=== PATIENT | male | born 1955 | race Caucasian/White ===

== ENCOUNTER → 2018-11-06 | Outpatient (CLI) | payer BC ==
--- NOTE | 2018-11-07 10:08 | ECHOF ---
Referral Reason:R01.1 Cardiac Murmur MEASUREMENTS -------- HEIGHT: 180.3 cm WEIGHT: 83.9 kg BP: 100/64 RVIDd: 3.4 cm (< 3.3) IVSd: 1.2 cm (0.6 - 1.1) LVIDd: 4.8 cm (3.9 - 5.3) LVPWd: 1.3 cm (0.6 - 1.1) IVSs: 1.6 cm LVIDs: 3.7 cm LVPWs: 1.8 cm LA Diam: 3.4 cm (2.7 - 3.8) LAESV Index (A-L): 22.83 ml/m Ao Diam: 3.7 cm (2.0 - 3.7) AV Cusp: 2.6 cm (1.5 - 2.6) MV EXCURSION: 26.030 mm (> 18.000) MV EF SLOPE: 144 mm/s (70 - 150) EPSS: 0.6 cm MV E Freddy: 0.61 m/s MV DecT: 224 ms MV A Freddy: 0.53 m/s MV E/A Ratio: 1.14 AV maxP.63 mmHg AV meanP.40 mmHg RAP: 5.00 mmHg RVSP: 21.14 mmHg FINDINGS -------- Sinus rhythm. This was a technically adequate study. The left ventricular size is normal. There is mild concentric left ventricular hypertrophy. Overa ll left ventricular systolic function is mildly impaired with, an EF between 45 - 50 %. The right ventricle is mildly enlarged. Normal LA size by volume 22+/-6 ml/m2. The right atrium is normal in size. There is mild aortic valve sclerosis. The mitral valve leaflets are mildly thickened. Mild mitral annular calcification present. There is trace mitral regurgitation. Trace tricuspid regurgitation present. There is no pulmonic regurgitation present. The aortic root size is normal. Normal inferior vena cava with normal inspiratory collapse consistent with estimated right atrial pre ssure of 5 mmHg. The inferior vena cava is mildly dilated. There is no pericardial effusion. CONCLUSIONS -------- 1. Sinus rhythm. 2. This was a technically adequate study. 3. The left ventricular size is normal. 4. There is mild concentric left ventricular hypertrophy. 5. Overall left ventricular systolic function is mildly impaired with, an EF between 45 - 50 %. 6. The right ventricle is mildly enlarged. 7. Normal LA size by volume 22+/-6 ml/m2. 8. The right atrium is normal in size. 9. There is mild aortic valve sclerosis. 10. The mitral valve leaflets are mildly thickened. 11. Mild mitral annular calcification present. 12. There is trace mitral regurgitation. 13. Trace tricuspid regurgitation present. 14. There is no pulmonic regurgitation present. 15. The aortic root size is normal. 16. Normal inferior vena cava with normal inspiratory collapse consistent with estimated right atrial pressure of 5 mmHg. 17. The inferior vena cava is mildly dilated. 18. There is no pericardial effusion. [employer]OL[employer] MANAGER: Nereyda Crane RDCS
== END | disposition home or self-care (01) ==
LOC: RADECHMAIN 15:46
PROVIDERS: ATTEND Pediatrics
DX: I08.3 Combined rheumatic disorders of mitral, aortic and tricuspid valves (principal)
CPT/HCPCS: 93306

== ENCOUNTER → 2019-03-14 | Outpatient (CLI) | payer BC ==
--- NOTE | 2019-03-14 12:43 | CONS ---
CONSULTATION DATE OF SERVICE: 03/14/2019 A 63-year-old gentleman who has been evaluated in the sleep center for possible obstructive sleep apnea-hypopnea syndrome. HISTORY OF PRESENT ILLNESS/SLEEP-WAKE EVALUATION: Patient usual sleep schedule from 9 p.m. to 4 to 5 am basically 7 days a week. No problem with falling asleep, although he has TV set in bedroom. He sleeps on the back position. He snores. He wakes up from sleep 3 times with 2 episodes of nocturia. In the morning, he wakes up tired, falling asleep during the day. Crocker Sleepiness Scale significantly increased to 12. He takes 1 nap during the day at noon time, usually does not feel refreshed after that. No vivid dreams during naps. He drinks 2 caffeinated beverages during the day. PAST MEDICAL HISTORY: Hypertension, hyperlipidemia, history of bronchitis. PAST SURGICAL HISTORY: Total right hip replacement 4 years ago, bilateral inguinal hernia repair. MEDICATIONS: Lisinopril and medication for cholesterol, patient does not remember the name. SOCIAL HISTORY: Positive for smoking about 1 pack a day for 45 years. Patient continued to smoke. Alcohol consumption occasional. FAMILY HISTORY: Positive for heart problems. REVIEW OF SYSTEMS: Awakenings from sleep, sleepiness during the day, cough. PHYSICAL EXAM: gentleman without distress. BP 125/76, HR 82, RR 18, height 5 foot 10 inches, weight 181.2 pounds, temperature 98.5, oxygen saturation at room air 95%, body mass index 25.9. OROPHARYNX: Extremely low position of soft palate. Mallampati 4. Restriction of nasal breathing. Wide neck 16-1/2 inches in circumference. LUNGS: Occasional wheezing. EXTREMITIES: 1+ ankle edema. IMPRESSION: 1. Snoring, multiple awakenings from sleep, extremely low soft palate, wide neck, sleepiness, obstructive sleep apnea-hypopnea syndrome. 2. Smoker for 45 pack years, wheezing, chronic obstructive pulmonary disease. 3. Hypertension. 4. Hyperlipidemia. 5. Status post total right hip replacement. 6. Status post inguinal hernia repair, bilaterally. PLAN: 1. Polysomnography for evaluation of patient's breathing during sleep. 2. CPAP/BiPAP titration if sleep study confirms obstructive sleep apnea-hypopnea syndrome. 3. Preferable position during sleep on the side. 4. No driving if patient feels any sleepiness. 5. I will see patient for follow up visit to explain results of testing and following plan. Thank you very much for referring this patient for consultation. Sincerely, Sid Kelley MD, PhD, FAASM Diplomat of [employer] Worker of [facility] [place] MMODL / TARIQ: [id number] /
== END ==
LOC: SLEEP 10:40
PROVIDERS: ATTEND Internal Medicine
DX: G47.33 Obstructive sleep apnea (adult) (pediatric) (principal); F17.210 Nicotine dependence, cigarettes, uncomplicated; J44.9 Chronic obstructive pulmonary disease, unspecified; I10 Essential (primary) hypertension; E78.5 Hyperlipidemia, unspecified; Z96.641 Presence of right artificial hip joint; Z98.890 Other specified postprocedural states; Z79.899 Other long term (current) drug therapy
CPT/HCPCS: 99211

== ENCOUNTER 2019-05-20 10:19 | Inpatient (IN) | payer BC ==
[2019-05-20] MEDS ORDERED: methylPREDNISolone SOD SUCCI 125 MG/2 ML VIAL IV STA (10:45)
[2019-05-20] MEDS ORDERED: SODIUM CHLORIDE 0.9% 1,000 ML IV STA ×2 (10:45→10:51)
[2019-05-20] MEDS ORDERED: IPRATROPIUM-ALBUTEROL 3 ML NEB INHALATION STA (10:45)
--- NOTE | 2019-05-20 10:47 | ED ---
SOB HPI - General Chief Complaint: Shortness of Breath Stated Complaint: SOB/chest pain Time Seen by Provider: 05/20/19 10:38 Source: patient, RN notes reviewed Mode of arrival: wheelchair Limitations: no limitations - History of Present Illness Initial Comments: This is a 63-year-old male who was a smoker who states he quit this morning who states been dealing with shortness of breath for the past month or so is acting better in spite of medication. He has exertional dyspnea denies any chest pain he states he coughs and can't get anything up. He currently is on albuterol as well as oral steroids and doxycycline. No other modifying factors at this time MD Complaint: shortness of breath, cough - Related Data Home Medications Medication Instructions Recorded Confirmed Aspirin 81 mg PO DAILY 05/20/19 05/20/19 Atorvastatin [Lipitor] 20 mg PO DAILY 05/20/19 05/20/19 Lisinopril-Hctz 20-12.5 mg 1 tab PO DAILY 05/20/19 05/20/19 [Zestoretic 20-12.5] Loratadine [Claritin] 10 mg PO DAILY 05/20/19 05/20/19 Multivitamins, Thera [Multivitamin 1 tab PO DAILY 05/20/19 05/20/19 (formulary)] Allergies Allergy/AdvReac Type Severity Reaction Status Date / Time No Known Allergies Allergy Verified 05/20/19 11:09 Review of Systems ROS Statement: Those systems with pertinent positive or pertinent negative responses have been documented in the HPI. ROS Other: All systems not noted in ROS Statement are negative. Past Medical History Past Medical History: Hypertension History of Any Multi-Drug Resistant Organisms: None Reported Past Surgical History: Joint Replacement Additional Past Surgical History / Comment(s): right hip replacement Past Psychological History: No Psychological Hx Reported Smoking Status: Former smoker Past Alcohol Use History: Occasional Past Drug Use History: None Reported General Exam - General Exam Comments Initial Comments: This is a well-developed well-nourished awake alert oriented 3 male Limitations: no limitations General appearance: alert, anxious, in distress Head exam: Present: atraumatic, normocephalic, normal inspection Eye exam: Present: normal appearance, PERRL, EOMI. Absent: scleral icterus, conjunctival injection, periorbital swelling ENT exam: Present: normal exam, mucous membranes moist Neck exam: Present: normal inspection, full ROM. Absent: tenderness, meningismus, lymphadenopathy Respiratory exam: Present: wheezes, rhonchi, accessory muscle use, decreased breath sounds. Absent: respiratory distress, rales, stridor Cardiovascular Exam: Present: normal rhythm, tachycardia, normal heart sounds. Absent: systolic murmur, diastolic murmur, rubs, gallop, clicks GI/Abdominal exam: Present: soft, normal bowel sounds. Absent: distended, tenderness, guarding, rebound, rigid Extremities exam: Present: normal inspection, full ROM, normal capillary refill. Absent: tenderness, pedal edema, joint swelling, calf tenderness Back exam: Present: normal inspection Neurological exam: Present: alert, oriented X3, CN II-XII intact Psychiatric exam: Present: normal affect, normal mood Skin exam: Present: warm, dry, intact, normal color. Absent: rash Course Vital Signs 05/20/19 05/20/19 05/20/19 10:30 11:00 11:05 Temperature 98.5 F Pulse Rate 42 L 174 H 174 H Respiratory 22 Rate Blood Pressure 71/55 114/102 O2 Sat by Pulse 92 L 97 Oximetry 05/20/19 05/20/19 05/20/19 11:10 11:14 11:20 Temperature Pulse Rate 174 H 172 H 172 H Respiratory Rate Blood Pressure 75/30 93/79 O2 Sat by Pulse 98 98 Oximetry 05/20/19 05/20/19 05/20/19 11:30 11:45 12:15 Temperature Pulse Rate 172 H 172 H 170 H Respiratory Rate Blood Pressure 93/79 106/91 111/83 O2 Sat by Pulse 98 96 97 Oximetry 05/20/19 05/20/19 12:52 13:17 Temperature Pulse Rate 121 H 109 H Respiratory 20 16 Rate Blood Pressure 109/99 108/84 O2 Sat by Pulse 95 96 Oximetry - Reevaluation(s) Reevaluation #1: 05/20/19 14:23 EKG showed what appear to be atrial flutter with a 21 AV conduction rate 174 QRS 82 QT since QTC 368/456. This is after adenosine was given. Reevaluation #2: 05/20/19 14:24 Rhythm strip during adenosine revealed evidence of atrial flutter. Reevaluation #3: 05/20/19 14:24 Repeat EKG at 1350 4 PM rate of 108 QRS 84 QT since QTC 322/431 atrial flutter left exodeviation low-voltage QRS Procedures - Smoking Cessation Time Spent Discussing Smoking Cessation w/Patient (Minutes): 3 Patient Acknowledges Need for Cessation: Yes Medical Decision Making - Medical Decision Making I did reevaluate patient on multiple occasions did discuss case with Dr. Whiting who did come the emergency department see the patient. Patient will be admitted cardiology consultation. - Lab Data Result diagrams: 05/20/19 10:52 05/20/19 10:52 Lab Results 05/20/19 05/20/19 05/20/19 Range/Units 10:52 10:52 10:52 WBC 22.4 H (3.8-10.6) k/uL RBC 5.20 (4.30-5.90) m/uL Hgb 16.5 (13.0-17.5) gm/dL Hct 51.3 (39.0-53.0) % MCV 98.5 (80.0-100.0) fL MCH 31.6 (25.0-35.0) pg MCHC 32.1 (31.0-37.0) g/dL RDW 13.0 (11.5-15.5) % Plt Count 323 (150-450) k/uL Neutrophils % 90 % Lymphocytes % 3 % Monocytes % 5 % Eosinophils % 2 % Basophils % 0 % Neutrophils # 20.2 H (1.3-7.7) k/uL Lymphocytes # 0.6 L (1.0-4.8) k/uL Monocytes # 1.0 (0-1.0) k/uL Eosinophils # 0.3 (0-0.7) k/uL Basophils # 0.1 (0-0.2) k/uL PT 11.5 (9.0-12.0) sec INR 1.1 (<1.2) APTT 26.2 (22.0-30.0) sec D-Dimer 4.06 H (<0.60) mg/L FEU Sodium 138 (137-145) mmol/L Potassium 5.1 (3.5-5.1) mmol/L Chloride 102 (98-107) mmol/L Carbon Dioxide 28 (22-30) mmol/L Anion Gap 8 mmol/L BUN 27 H (9-20) mg/dL Creatinine 0.99 (0.66-1.25) mg/dL Est GFR (CKD-EPI)AfAm >90 (>60 ml/min/1.73 sqM) Est GFR (CKD-EPI)NonAf 82 (>60 ml/min/1.73 sqM) Glucose 133 H (74-99) mg/dL Calcium 9.4 (8.4-10.2) mg/dL Magnesium 2.0 (1.6-2.3) mg/dL Total Bilirubin 1.3 (0.2-1.3) mg/dL AST 80 H (17-59) U/L ALT 131 H (21-72) U/L Alkaline Phosphatase 138 H (38-126) U/L Creatine Kinase 31 L (55-170) U/L Troponin I (0.000-0.034) ng/mL NT-Pro-B Natriuret Pep pg/mL Total Protein 6.4 (6.3-8.2) g/dL Albumin 3.5 (3.5-5.0) g/dL Urine Color Urine Appearance (Clear) Urine pH (5.0-8.0) Ur Specific [place] (1.001-1.035) Urine Protein (Negative) Urine Glucose (UA) (Negative) Urine Ketones (Negative) Urine Blood (Negative) Urine Nitrite (Negative) Urine Bilirubin (Negative) Urine Urobilinogen (<2.0) mg/dL Ur Leukocyte Esterase (Negative) 05/20/19 05/20/19 05/20/19 Range/Units 10:52 10:52 12:35 WBC (3.8-10.6) k/uL RBC (4.30-5.90) m/uL Hgb (13.0-17.5) gm/dL Hct (39.0-53.0) % MCV (80.0-100.0) fL MCH (25.0-35.0) pg MCHC (31.0-37.0) g/dL RDW (11.5-15.5) % Plt Count (150-450) k/uL Neutrophils % % Lymphocytes % % Monocytes % % Eosinophils % % Basophils % % Neutrophils # (1.3-7.7) k/uL Lymphocytes # (1.0-4.8) k/uL Monocytes # (0-1.0) k/uL Eosinophils # (0-0.7) k/uL Basophils # (0-0.2) k/uL PT (9.0-12.0) sec INR (<1.2) APTT (22.0-30.0) sec D-Dimer (<0.60) mg/L FEU Sodium (137-145) mmol/L Potassium (3.5-5.1) mmol/L Chloride (98-107) mmol/L Carbon Dioxide (22-30) mmol/L Anion Gap mmol/L BUN (9-20) mg/dL Creatinine (0.66-1.25) mg/dL Est GFR (CKD-EPI)AfAm (>60 ml/min/1.73 sqM) Est GFR (CKD-EPI)NonAf (>60 ml/min/1.73 sqM) Glucose (74-99) mg/dL Calcium (8.4-10.2) mg/dL Magnesium (1.6-2.3) mg/dL Total Bilirubin (0.2-1.3) mg/dL AST (17-59) U/L ALT (21-72) U/L Alkaline Phosphatase (38-126) U/L Creatine Kinase (55-170) U/L Troponin I <0.012 (0.000-0.034) ng/mL NT-Pro-B Natriuret Pep 3520 pg/mL Total Protein (6.3-8.2) g/dL Albumin (3.5-5.0) g/dL Urine Color Yellow Urine Appearance Clear (Clear) Urine pH 7.5 (5.0-8.0) Ur Specific [place] 1.047 H (1.001-1.035) Urine Protein Trace H (Negative) Urine Glucose (UA) Negative (Negative) Urine Ketones Trace H (Negative) Urine Blood Negative (Negative) Urine Nitrite Negative (Negative) Urine Bilirubin Negative (Negative) Urine Urobilinogen <2.0 (<2.0) mg/dL Ur Leukocyte Esterase Negative (Negative) - EKG Data -: EKG Interpreted by Me (EKG showed evidence of previous sinus tachycardia rate was 176 ME interval ) - Radiology Data Radiology results: report reviewed (Imaging was reviewed no evidence of pulmonary embolism. X-ray was nonspecific), image reviewed Critical Care Time Critical Care Time: Yes Critical Care Time: 54 minutes of critical care time which includes initial presentation with history physical labs x-rays multiple reevaluation the patient response to therapy DISCUSSION with patient family members admission orders discussed with the main physician documentation of the above Disposition Clinical Impression: Atrial flutter with rapid ventricular response, Hypotensive episode, Leukocytosis, COPD exacerbation, Smoking, Dyspnea Disposition: ADMITTED IP TO THIS HOSP Condition: Fair Referrals: Koby Holguin MD [Primary Care Provider] - 1-2 days
[2019-05-20] MEDS ORDERED: ADENOSINE 3 MG/ML 2 ML VIAL IVP STA ×2 (10:52→11:03)
[2019-05-20 11:03] LABS: Basophils # (A) 0.1 k/uL (0-0.2); Basophils % (A) 0 %; Eosinophils # (A) 0.3 k/uL (0-0.7); Eosinophils % (A) 2 %; HCT 51.3 % (39.0-53.0); HGB 16.5 gm/dL (13.0-17.5); Lymphocytes # (A) 0.6 k/uL (1.0-4.8); Lymphocytes % (A) 3 %; MCH 31.6 pg (25.0-35.0); MCHC 32.1 g/dL (31.0-37.0); MCV 98.5 fL (80.0-100.0); Mean Platelet Volume 7.2; Monocytes % (A) 5 %; Neutrophils # (A) 20.2 k/uL (1.3-7.7); Neutrophils % (A) 90 %; Platelet Count 323 k/uL (150-450); WBC 22.4 k/uL (3.8-10.6)
[2019-05-20 11:11] LABS: ALT 131 U/L (21-72); AST 80 U/L (17-59); African American GFR (CKD) >90 (>60 ml/min/1.73 sqM); Albumin 3.5 g/dL (3.5-5.0); Alkaline Phosphatase 138 U/L (38-126); Anion Gap 8 mmol/L; Blood Urea Nitrogen 27 mg/dL (9-20); Calcium 9.4 mg/dL (8.4-10.2); Carbon Dioxide 28 mmol/L (22-30); Chloride 102 mmol/L (98-107); Creatine Kinase 31 U/L (55-170); Glucose 133 mg/dL (74-99); Potassium 5.1 mmol/L (3.5-5.1); Sodium 138 mmol/L (137-145); Total Bilirubin 1.3 mg/dL (0.2-1.3); Total Protein 6.4 g/dL (6.3-8.2)
[2019-05-20] MEDS ORDERED: DILTIAZEM DRIP BOLUS FROM BAG 1 MG SOLN IV ONE ×2 (11:11→12:45)
[2019-05-20 11:23] LABS: INR 1.1 (<1.2); Partial Thromboplastin Time 26.2 sec (22.0-30.0); Prothrombin Time 11.5 sec (9.0-12.0)
[2019-05-20 11:27] LABS: D-Dimer 4.06 mg/L FEU (<0.60)
[2019-05-20] MEDS: DILTIAZEM 125 MG in SODIUM CHLORIDE 0.9% 100 ML IV SCH (11:32)
--- NOTE | 2019-05-20 11:53 | XR ---
EXAMINATION TYPE: XR chest 1V DATE OF EXAM: 05/20/2019 COMPARISON: Prior chest x-ray 09/23/2013 HISTORY: Difficulty breathing, tachycardia and chest pain TECHNIQUE: Single frontal view of the chest is obtained. FINDINGS: The patient is rotated. There are overlying cardiac leads. Heart size may be accentuated by rotation. Linear focus of increased attenuation is present in the left midlung. Aorta is dense. Ther e is no pleural effusion or pneumothorax seen. There are prominent lung volumes, there may be underly ing COPD. The osseous structures are intact. IMPRESSION: There may be some subsegmental atelectatic change or scarring. Accentuated heart size is described.
--- NOTE | 2019-05-20 12:33 | CT ---
EXAMINATION TYPE: CT angio chest DATE OF EXAM: 05/20/2019 COMPARISON: Radiograph same day HISTORY: 63-year-old male chest pain, tachycardia, difficulty breathing TECHNIQUE: Contiguous axial scanning of the chest performed with IV Contrast, patient injected with 1 00 mL of Isovue 370. Coronal/sagittal MIP reconstructions performed. CT DLP: 348.8 mGycm Automated exposure control for dose reduction was used. FINDINGS: Heart is normal size but with a moderate-sized pericardial effusion measuring 1.5 cm thick. Suggestio n of some pericardial thickening as well. No flattening of the interventricular septum or reflux of c ontrast into the hepatic veins. Coronary vessel calcifications are present. Ascending aorta mildly ectatic at 3.6 cm with mild atherosclerotic arch calcifications and convention al arch vessel branching anatomy. Nonenlarged and are likely mildly enlarged mediastinal lymph nodes measure up to 1.3 cm in the AP win ranjith, 1.0 cm lower right paratracheal region, and 9 mm left tracheobronchial angle. Satisfactory opacification of the pulmonary arterial system. No evidence for pulmonary embolus. Moderate centrilobular and paraseptal emphysema. Mild diffuse bronchial wall thickening. Strandy atel ectasis anterior right mid lung and within the lingula. Patchy atelectasis posterior right base. Ther e is a small left pleural effusion with adjacent left basilar atelectasis. Some endobronchial opacifi cation extends within the basilar left lower lobe and some mild dependent debris within the left main stem and left lower lobe bronchi. Visualized upper abdomen shows no gross abnormality. Bones: Mild degenerative disc disease throughout. IMPRESSION: 1. NO EVIDENCE FOR PULMONARY EMBOLUS. 2. MODERATE-SIZED PERICARDIAL EFFUSION MEASURING 1.5 CM THICK. CORRELATE FOR POSSIBLE PERICARDITIS. 3. SMALL LEFT PLEURAL EFFUSION WITH ADJACENT ATELECTASIS. THERE IS SOME LAYERING DEBRIS WITHIN THE LE FT MAINSTEM AND LEFT LOWER LOBE BRONCHUS AND SCATTERED ENDOBRONCHIAL OPACIFICATION AT THE LEFT BASE. CORRELATE FOR POSSIBLE ASPIRATION. NO PRINCESS PNEUMONITIS AT THIS TIME. 4. COPD WITH MODERATE EMPHYSEMA.
[2019-05-20 12:50] LABS: Appearance,Urine Clear (Clear); Bilirubin,Urine Negative (Negative); Blood,Urine Negative (Negative); Color,Urine Yellow; Glucose,Urine (UA) Negative (Negative); Ketones,Urine Trace (Negative); Leukocyte Esterase,Urine Negative (Negative); Nitrite,Urine Negative (Negative); PH, Urine 7.5 (5.0-8.0); Protein,Urine Trace (Negative); Urobilinogen,Urine <2.0 mg/dL (<2.0)
[2019-05-20 12:54] LABS: Specific Gravity,Urine 1.047 (1.001-1.035)
[2019-05-20] MEDS ORDERED: KETOROLAC 30 MG/ML 1 ML VIAL IVP PRN (14:22)
[2019-05-20] MEDS ORDERED: NALOXONE 0.4 MG/ML 1 ML VIAL IV PRN (14:28)
--- NOTE | 2019-05-20 14:28 | P.HPIM ---
History of Present Illness Patient is a pleasant 71-year-old gentleman with known history of smoking smokes about a pack per day came in with complaints of chest pain has been going on for about 4 weeks constant moderate amount of chest pain nonradiating and not associated with the shortness of breath and last night which he is unable to sleep because of shortness of breath does not appear to be associated chest pain. His chest pain is nonexertional does have pleuritic competent denied any flulike symptoms recently. Patient does have cough unable to bring up anything. Patient does have wheezing on exam CAT scan of the chest was done which showed moderate amount of pericardial effusion appears to have some pleuropericarditis doesn't have any pulmonary embolism, I reviewed the CAT scan I do not believe patient has any pneumonia although it was read as possibly of aspiration. Patient denied any fever chills patient had nausea vomiting. In ER patient is found to have a SVT with heart rate of 1 04/01/2020 patient was given 1 dose of Pitocin after which patient was started on Cardizem patient had a previous echocardiogram here which showed ejection fraction of 45-50% patient does follow up with the doctor Mark as an outpatient unsure why. Patient does have leukocytosis. Review of Systems REVIEW OF SYSTEMS: CONSTITUTIONAL: No fever, no malaise, no fatigue. HEENT: No recent visual problems or hearing problems. Denied any sore throat. CARDIOVASCULAR: No orthopnea, PND, no palpitations, no syncope. PULMONARY: no hemoptysis. GASTROINTESTINAL: No diarrhea, no nausea, no vomiting, no abdominal pain. NEUROLOGICAL: No headaches, no weakness, no numbness. HEMATOLOGICAL: Denies any bleeding or petechiae. GENITOURINARY: Denies any burning micturition, frequency, or urgency. MUSCULOSKELETAL/RHEUMATOLOGICAL: Denies any joint pain, swelling, or any muscle pain. ENDOCRINE: Denies any polyuria or polydipsia. The rest of the 14-point review of systems is negative. Past Medical History Past Medical History: Hypertension History of Any Multi-Drug Resistant Organisms: None Reported Past Surgical History: Joint Replacement Additional Past Surgical History / Comment(s): right hip replacement Past Psychological History: No Psychological Hx Reported Smoking Status: Former smoker Past Alcohol Use History: Occasional Past Drug Use History: None Reported Medications and Allergies Home Medications Medication Instructions Recorded Confirmed Type Aspirin 81 mg PO DAILY 05/20/19 05/20/19 History Atorvastatin [Lipitor] 20 mg PO DAILY 05/20/19 05/20/19 History Lisinopril-Hctz 20-12.5 mg 1 tab PO DAILY 05/20/19 05/20/19 History [Zestoretic 20-12.5] Loratadine [Claritin] 10 mg PO DAILY 05/20/19 05/20/19 History Multivitamins, Thera [Multivitamin 1 tab PO DAILY 05/20/19 05/20/19 History (formulary)] Allergies Allergy/AdvReac Type Severity Reaction Status Date / Time No Known Allergies Allergy Verified 05/20/19 11:09 Physical Exam Vitals: Vital Signs Temp Pulse Resp BP Pulse Ox 05/20/19 13:17 109 H 16 108/84 96 05/20/19 12:52 121 H 20 109/99 95 05/20/19 12:15 170 H 111/83 97 05/20/19 11:45 172 H 106/91 96 05/20/19 11:30 172 H 93/79 98 05/20/19 11:20 172 H 93/79 98 05/20/19 11:14 172 H 05/20/19 11:10 174 H 75/30 98 05/20/19 11:05 174 H 05/20/19 11:00 174 H 114/102 97 05/20/19 10:30 98.5 F 42 L 22 71/55 92 L Intake and Output 05/19/19 05/20/19 05/20/19 22:59 06:59 14:59 Intake Total 7.916 Balance 7.916 Intake: Intake, IV Titration 7.916 Amount Diltiazem 125 mg In 7.916 Sodium Chloride 0.9% 100 ml @ 5 MG/HR 5 mls/hr IV .Q24H [facility] Rx#:[id number] Other: Weight 83.461 kg PHYSICAL EXAMINATION: GENERAL: The patient is alert and oriented x3, not in any acute distress. Well developed, well nourished. HEENT: Pupils are round and equally reacting to light. EOMI. No scleral icterus. No conjunctival pallor. Normocephalic, atraumatic. No pharyngeal erythema. No thyromegaly. CARDIOVASCULAR: S1 and S2 present. No murmurs, rubs, or gallops. Tachycardic irregular rhythm PULMONARY: Decreased air entry with some expiratory wheezing on exam ABDOMEN: Soft, nontender, nondistended, normoactive bowel sounds. No palpable organomegaly. MUSCULOSKELETAL: No joint swelling or deformity. EXTREMITIES: No cyanosis, clubbing, or pedal edema. NEUROLOGICAL: Gross neurological examination did not reveal any focal deficits. SKIN: No rashes. Results CBC & Chem 7: 05/20/19 10:52 05/20/19 10:52 Labs: Abnormal Lab Results - Last 24 Hours (Table) 05/20/19 05/20/19 05/20/19 Range/Units 10:52 10:52 10:52 WBC 22.4 H (3.8-10.6) k/uL Neutrophils # 20.2 H (1.3-7.7) k/uL Lymphocytes # 0.6 L (1.0-4.8) k/uL D-Dimer 4.06 H (<0.60) mg/L FEU BUN 27 H (9-20) mg/dL Glucose 133 H (74-99) mg/dL AST 80 H (17-59) U/L ALT 131 H (21-72) U/L Alkaline Phosphatase 138 H (38-126) U/L Creatine Kinase 31 L (55-170) U/L Ur Specific [place] (1.001-1.035) Urine Protein (Negative) Urine Ketones (Negative) 05/20/19 Range/Units 12:35 WBC (3.8-10.6) k/uL Neutrophils # (1.3-7.7) k/uL Lymphocytes # (1.0-4.8) k/uL D-Dimer (<0.60) mg/L FEU BUN (9-20) mg/dL Glucose (74-99) mg/dL AST (17-59) U/L ALT (21-72) U/L Alkaline Phosphatase (38-126) U/L Creatine Kinase (55-170) U/L Ur Specific [place] 1.047 H (1.001-1.035) Urine Protein Trace H (Negative) Urine Ketones Trace H (Negative) Assessment and Plan Plan: -COPD with acute exacerbation: Patient was started on oral steroids and continue with inhalational treatments. Patient was never diagnosed with COPD nicotine cessation counseling was provided. -Chest pain: Appears to be pleuropericarditis probably viral etiology patient will be started on Toradol patient was also started on prednisone for COPD which will be continued patient will be ruled out acute coronary syndromes cardiology will be consulted -Moderate pericardial effusion: Echocardiogram will be obtained to clearly assess the ejection fraction as well as a effusion. -SVT on admission present rhythm is not clear patient appears to have a regular rhythm secondary to frequent PVCs. Patient may have atrial flutter as well. Patient is presently not started on anticoagulation yet. Cardiology will evaluate the patient. Patient was started on beta adolfo presently on Cardizem drip which will be slowly tapered down -Congestive heart failure mildly depressed ejection fraction chronic systolic dysfunction ejection fraction of 45-50% -Mild nonspecific elevation of liver enzymes we'll repeat liver enzymes if they continue to go up and we will do further workup with ultrasound of the abdomen. -Leukocytosis reactive in nature -Hypertension because of the Cardizem I have concerns about hypotension because of which I'll not start him on any of his antidepressants medications -Patient will need GI prophylaxis with Pepcid
[2019-05-20] MEDS ORDERED: HEPARIN SODIUM,PORCINE 5,000 UNIT/ML 1 ML VIAL IV ONE (17:03)
[2019-05-20] MEDS ORDERED: HEPARIN SODIUM,PORCINE 5,000 UNIT/ML 1 ML VIAL IV PRN (17:03)
--- NOTE | 2019-05-20 17:05 | ECHOF ---
Referral Reason:pericardial effusion MEASUREMENTS -------- HEIGHT: 172.7 cm WEIGHT: 83.5 kg BP: RVIDd: 3.2 cm (< 3.3) IVSd: 1.2 cm (0.6 - 1.1) LVIDd: 4.6 cm (3.9 - 5.3) LVPWd: 1.1 cm (0.6 - 1.1) IVSs: 1.5 cm LVIDs: 3.9 cm LVPWs: 1.7 cm LA Diam: 3.1 cm (2.7 - 3.8) Ao Diam: 3.3 cm (2.0 - 3.7) AV Cusp: 1.1 cm (1.5 - 2.6) LA Diam: 3.2 cm (2.7 - 3.8) MV EXCURSION: 25.380 mm (> 18.000) MV EF SLOPE: 146 mm/s (70 - 150) EPSS: 0.4 cm MV E Freddy: 0.57 m/s MV DecT: 120 ms MV A Freddy: 0.00 m/s MV E/A Ratio: 593.66 RAP: 5.00 mmHg RVSP: 17.13 mmHg FINDINGS -------- Atrial fibrillation. This was a technically adequate study. The left ventricular size is normal. There is borderline concentric left ventricular hypertrophy. Overall left ventricular systolic function is mildly impaired with, an EF between 45 - 50 %. The right ventricle is normal in size. The left atrial size is normal. The right atrial size is normal. There is mild aortic valve sclerosis. There is no evidence of aortic regurgitation. Mild mitral annular calcification present. Mild mitral regurgitation is present. Mild tricuspid regurgitation present. There is no evidence of pulmonary hypertension. The right v entricular systolic pressure, as measured by Doppler, is 17.13mmHg. There is no pulmonic regurgitation present. The aortic root size is normal. There is a small, generalized pericardial effusion present. CONCLUSIONS -------- 1. Atrial fibrillation. 2. This was a technically adequate study. 3. The left ventricular size is normal. 4. Overall left ventricular systolic function is mildly impaired with, an EF between 45 - 50 %. 5. The right ventricle is normal in size. 6. The left atrial size is normal. 7. The right atrial size is normal. 8. There is mild aortic valve sclerosis. 9. Mild mitral annular calcification present. 10. Mild mitral regurgitation is present. 11. Mild tricuspid regurgitation present. 12. There is no evidence of pulmonary hypertension. 13. The right ventricular systolic pressure, as measured by Doppler, is 17.13mmHg. 14. There is no pulmonic regurgitation present. 15. The aortic root size is normal. 16. There is a small, generalized pericardial effusion present. CONTACT LENS LATHE OPERATOR: Kenyatta Ignacio RDCS
[2019-05-20] MEDS ORDERED: HEPARIN SOD,PORK IN 0.45% NACL 25,000 UNIT in 0.45% NACL 1 250ML.BAG IV SCH (17:15)
[2019-05-20] MEDS: IPRATROPIUM-ALBUTEROL 3 ML NEB INHALATION PRN (19:50)
[2019-05-20] MEDS: METOPROLOL TARTRATE 50 MG TAB PO SCH (21:09)
[2019-05-20] MEDS: FAMOTIDINE 20 MG TAB PO SCH (21:09)
[2019-05-21] MEDS: IPRATROPIUM-ALBUTEROL 3 ML NEB INHALATION PRN ×3 (02:30→18:56)
[2019-05-21 02:56] LABS: African American GFR (CKD) >90 (>60 ml/min/1.73 sqM); Anion Gap 7 mmol/L; Blood Urea Nitrogen 20 mg/dL (9-20); Calcium 8.5 mg/dL (8.4-10.2); Carbon Dioxide 26 mmol/L (22-30); Chloride 104 mmol/L (98-107); Glucose 146 mg/dL (74-99); Magnesium 2.1 mg/dL (1.6-2.3); Potassium 4.2 mmol/L (3.5-5.1); Sodium 137 mmol/L (137-145)
[2019-05-21] MEDS: DILTIAZEM 125 MG in SODIUM CHLORIDE 0.9% 100 ML IV SCH (05:33)
[2019-05-21 06:43] LABS: Basophils % (A) 0 %; Eosinophils # (A) 0.1 k/uL (0-0.7); Eosinophils % (A) 0 %; HGB 14.1 gm/dL (13.0-17.5); Lymphocytes # (A) 0.5 k/uL (1.0-4.8); Lymphocytes % (A) 2 %; MCH 31.9 pg (25.0-35.0); MCV 99.5 fL (80.0-100.0); Mean Platelet Volume 7.7; Monocytes # (A) 0.9 k/uL (0-1.0); Monocytes % (A) 5 %; Neutrophils # (A) 18.4 k/uL (1.3-7.7); Neutrophils % (A) 92 %; Platelet Count 246 k/uL (150-450); RBC 4.42 m/uL (4.30-5.90); RDW 14.2 % (11.5-15.5)
[2019-05-21 06:52] LABS: ALT 81 U/L (21-72); AST 29 U/L (17-59); African American GFR (CKD) >90 (>60 ml/min/1.73 sqM); Albumin 2.9 g/dL (3.5-5.0); Alkaline Phosphatase 117 U/L (38-126); Anion Gap 6 mmol/L; Blood Urea Nitrogen 18 mg/dL (9-20); Calcium 8.6 mg/dL (8.4-10.2); Carbon Dioxide 27 mmol/L (22-30); Chloride 104 mmol/L (98-107); Glucose 152 mg/dL (74-99); Potassium 4.3 mmol/L (3.5-5.1); Sodium 137 mmol/L (137-145); Total Bilirubin 0.4 mg/dL (0.2-1.3); Total Protein 5.5 g/dL (6.3-8.2)
[2019-05-21] MEDS ORDERED: FUROSEMIDE 10 MG/ML 2 ML VIAL IV ONE (08:29)
--- NOTE | 2019-05-21 09:29 | CONS ---
CONSULTATION Mr. Hutchinson is a 63-year-old male with a known history of hypertension, hyperlipidemia, chronic tobacco use, who presented with symptoms of progressive dyspnea and cough and wheezing. He was noted to be in atrial flutter with a rapid ventricular response. He has no prior history of arrhythmia, has been followed by Dr. Gilbert on a regular basis. He denies any exertional chest discomfort. He has exertional dyspnea. He has no peripheral edema. No PND. No orthopnea. He has some palpitation and some chest discomfort with deep breathing and coughing. He has been started on IV Cardizem and IV heparin with controlling of his ventricular response. He has no history of myocardial infarction or documented congestive heart failure. He had an echocardiogram performed yesterday that showed ejection fraction 45% to 50%, which is somewhat similar to what he was noted to have in the past with mild mitral and tricuspid regurgitation. His coronary risk factors are remarkable for smoking, which he stopped only 2 days ago, history of hypertension, hyperlipidemia. MEDICATIONS: His medications at home included Zestoretic 20/12.5 mg daily, Lipitor 20 mg daily and aspirin once a day. REVIEW OF SYSTEMS: RESPIRATORY SYSTEM: He has history of progressive dyspnea and a cough. History of obstructive lung disease. GI SYSTEM: No recent GI bleed. No peptic ulcer disease. SYSTEM: No dysuria or hematuria. NERVOUS SYSTEM: No history of stroke or seizure. PHYSICAL EXAMINATION: This is a 63-year-old male, alert, oriented, in no apparent distress. Blood pressure 104/72 with the heart rate in the 60s. HEAD: Normocephalic. EYES: Sclerae anicteric. NECK: Good carotid upstroke. No bruit. LUNGS: With decreased air exchange with diffuse wheezes bilaterally. HEART: Irregular, irregular, S1, S2. No S3. No rub. No significant murmur. ABDOMEN: Soft, nontender. Positive bowel sounds. No organomegaly. EXTREMITIES: No edema. Intact distal pulses. LAB DATA: Lab data revealed troponin less than 0.012. NT proBNP of 3520. BUN and creatinine of 18 and 0.5. Potassium 4.3. D-dimer 4.06. Hemoglobin of 14.1, white blood cell of 20,000. Chest CT revealed no evidence of pulmonary embolism with evidence of pericardial effusion with evidence of chronic obstructive pulmonary disease and emphysema. Chest x-ray raised the question of cardiomegaly. EKG revealed atrial flutter with rapid ventricular response with episode of 2:1 conduction. Subsequently, the rate is under better control with variable blocks. IMPRESSION: 1. Upper respiratory infection with probable tracheobronchitis. 2. Atrial flutter, appears to be recent. 3. History of cardiomyopathy noted in the past. 4. History of chronic tobacco use with chronic obstructive lung disease. 5. Hypertension. 6. Hyperlipidemia. 7. Abdominal aortic aneurysm noted in the past. RECOMMENDATION: From the cardiac standpoint I will stop the IV heparin and Cardizem and will switch him to oral anticoagulation as well as oral Cardizem. Continue with his medical regimen. He had mild elevation of the NT proBNP that could be related to the tachycardia. I will give him one dose of diuretics. His EARLE inhibitor is on hold until his blood pressure is stabilized. He has been treated for the infectious process. After his lung status stabilized, then the decision will be made regarding either cardioversion or ablation. He has underwent a myocardial perfusion imaging in December of this year that revealed no evidence of inducible ischemia. Thank you for this consult. We will follow with you. MMODL / IJN: [id number] /
[2019-05-21] MEDS: predniSONE 20 MG TAB PO SCH (09:43)
[2019-05-21] MEDS: DILTIAZEM ORAL 30 MG TAB PO SCH ×3 (09:43→22:21)
[2019-05-21] MEDS: APIXABAN 5 MG TAB PO SCH ×2 (09:43→22:21)
[2019-05-21] MEDS: ASPIRIN 81 MG PO SCH (09:43)
[2019-05-21] MEDS: METOPROLOL TARTRATE 50 MG TAB PO SCH ×2 (09:43→22:21)
[2019-05-21] MEDS: ATORVASTATIN 20 MG TAB PO SCH (09:43)
[2019-05-21] MEDS: FAMOTIDINE 20 MG TAB PO SCH ×2 (09:44→22:21)
[2019-05-21 10:35] LABS: T4, Free (Free Thyroxine) 2.24 ng/dL (0.78-2.19)
--- NOTE | 2019-05-21 12:39 | P.PN ---
Subjective 71-year-old gentleman came in because of atrial flutter appears to be new onset patient was started on anti-correlation by cardiology and patient is on beta adolfo and Cardizem is being added. Patient is still wheezing quite a bit of neurology validate the patient is started on antibiotics and was switched to IV steroids from oral steroids. Patient may have some pleural pericarditis K echo cardiac exam showed only mild effusion around the heart. Constitutional: Denied any fatigue denied any fever. Cardio vascular: denied any chest pain, palpitations Gastrointestinal denied any nausea vomiting Pulmonary: Denied any shortness of breath cough Neurologic denied any new focal deficits All inpatient medications were reviewed and appropriate changes in these medications as dictated in the interval history and assessment and plan. Objective - Vital Signs Vital signs: Vital Signs Temp 98.2 F 05/21/19 08:00 Pulse 79 05/21/19 12:06 Resp 19 05/21/19 08:00 BP 98/63 05/21/19 08:00 Pulse Ox 96 05/21/19 11:58 Intake & Output 05/20/19 05/21/19 05/21/19 18:59 06:59 18:59 Intake Total 247.916 781.347 293.893 Balance 247.916 781.347 293.893 Weight 83.461 kg 84.5 kg Intake: Intake, IV Titration 7.916 181.347 93.893 Amount Diltiazem 125 mg In 7.916 117.084 Sodium Chloride 0.9% 100 ml @ 5 MG/HR 5 mls/hr IV .Q24H [facility] Rx#:[id number] Heparin Sod,Pork in 0.45% 64.263 93.893 NaCl 25,000 unit In 0.45 % NaCl 1 250ml.bag @ 12 UNITS/KG/HR 10.015 mls/hr IV .Q24H [facility] Rx#: [id number] Oral 240 600 200 Other: Voiding Method Toilet Toilet Urinal Urinal # Voids 1 2 - Exam PHYSICAL EXAMINATION: GENERAL: The patient is alert and oriented x3, not in any acute distress. Well developed, well nourished. HEENT: Pupils are round and equally reacting to light. EOMI. No scleral icterus. No conjunctival pallor. Normocephalic, atraumatic. No pharyngeal erythema. No thyromegaly. CARDIOVASCULAR: S1 and S2 present. No murmurs, rubs, or gallops. Tachycardic irregular rhythm PULMONARY: Decreased air entry with significant expiratory wheezing on exam ABDOMEN: Soft, nontender, nondistended, normoactive bowel sounds. No palpable organomegaly. MUSCULOSKELETAL: No joint swelling or deformity. EXTREMITIES: No cyanosis, clubbing, or pedal edema. NEUROLOGICAL: Gross neurological examination did not reveal any focal deficits. SKIN: No rashes. - Labs CBC & Chem 7: 05/21/19 05:52 05/21/19 05:52 Labs: Abnormal Lab Results - Last 24 Hours (Table) 05/20/19 05/20/19 05/21/19 Range/Units 12:35 22:30 02:32 WBC (3.8-10.6) k/uL Neutrophils # (1.3-7.7) k/uL Lymphocytes # (1.0-4.8) k/uL APTT 35.2 H (22.0-30.0) sec Creatinine 0.54 L (0.66-1.25) mg/dL Glucose 146 H (74-99) mg/dL ALT (21-72) U/L Total Protein (6.3-8.2) g/dL Albumin (3.5-5.0) g/dL TSH (0.465-4.680) mIU/L Free T4 (0.78-2.19) ng/dL Ur Specific [place] 1.047 H (1.001-1.035) Urine Protein Trace H (Negative) Urine Ketones Trace H (Negative) 05/21/19 05/21/19 05/21/19 Range/Units 05:52 05:52 05:52 WBC 20.0 H (3.8-10.6) k/uL Neutrophils # 18.4 H (1.3-7.7) k/uL Lymphocytes # 0.5 L (1.0-4.8) k/uL APTT 35.0 H (22.0-30.0) sec Creatinine 0.50 L (0.66-1.25) mg/dL Glucose 152 H (74-99) mg/dL ALT 81 H (21-72) U/L Total Protein 5.5 L (6.3-8.2) g/dL Albumin 2.9 L (3.5-5.0) g/dL TSH (0.465-4.680) mIU/L Free T4 (0.78-2.19) ng/dL Ur Specific [place] (1.001-1.035) Urine Protein (Negative) Urine Ketones (Negative) 05/21/19 Range/Units 05:52 WBC (3.8-10.6) k/uL Neutrophils # (1.3-7.7) k/uL Lymphocytes # (1.0-4.8) k/uL APTT (22.0-30.0) sec Creatinine (0.66-1.25) mg/dL Glucose (74-99) mg/dL ALT (21-72) U/L Total Protein (6.3-8.2) g/dL Albumin (3.5-5.0) g/dL TSH 0.105 L (0.465-4.680) mIU/L Free T4 2.24 H (0.78-2.19) ng/dL Ur Specific [place] (1.001-1.035) Urine Protein (Negative) Urine Ketones (Negative) Assessment and Plan Plan: -COPD with acute exacerbation: patient was switched to IV steroids will be started on Levaquin by pulmonology -Chest pain: Appears to be pleuropericarditis probably viral etiology continue with Toradol and prednisone with GI prophylaxis -Moderate pericardial effusion: Echocardiogram showed only mild effusion -atrial flutter with rapid ventricular rate: Patient was on beta adolfo was started on Cardizem and anticoagulation -Congestive heart failure mildly depressed ejection fraction chronic systolic dysfunction ejection fraction of 45-50%, not in acute exacerbation -Mild nonspecific elevation of liver enzymes which normalizes now no further testing is necessary -Leukocytosis reactive in natureAnn secondary to systemic steroids -Hypertension because of the Cardizem I have concerns about hypotension because of which I'll not start him on any of his antidepressants medications -Patient will need GI prophylaxis with Pepcid
[2019-05-22] MEDS: IPRATROPIUM-ALBUTEROL 3 ML NEB INHALATION PRN (05:51)
[2019-05-22 06:32] LABS: Basophils % (A) 0 %; Eosinophils % (A) 0 %; HCT 43.9 % (39.0-53.0); HGB 14.1 gm/dL (13.0-17.5); Lymphocytes # (A) 0.9 k/uL (1.0-4.8); Lymphocytes % (A) 5 %; MCH 32.7 pg (25.0-35.0); MCHC 32.2 g/dL (31.0-37.0); MCV 101.3 fL (80.0-100.0); Macrocytosis Slight; Mean Platelet Volume 7.3; Monocytes # (A) 0.9 k/uL (0-1.0); Monocytes % (A) 5 %; Neutrophils # (A) 15.8 k/uL (1.3-7.7); Neutrophils % (A) 89 %; Platelet Count 263 k/uL (150-450); RBC 4.33 m/uL (4.30-5.90); WBC 17.8 k/uL (3.8-10.6)
[2019-05-22 06:42] LABS: African American GFR (CKD) >90 (>60 ml/min/1.73 sqM); Anion Gap 3 mmol/L; Blood Urea Nitrogen 22 mg/dL (9-20); Calcium 8.9 mg/dL (8.4-10.2); Carbon Dioxide 34 mmol/L (22-30); Chloride 101 mmol/L (98-107); Glucose 102 mg/dL (74-99); Potassium 4.6 mmol/L (3.5-5.1); Sodium 138 mmol/L (137-145)
[2019-05-22] MEDS: METOPROLOL TARTRATE 50 MG TAB PO SCH ×2 (08:20→20:53)
[2019-05-22] MEDS: APIXABAN 5 MG TAB PO SCH ×2 (08:20→20:53)
[2019-05-22] MEDS: predniSONE 20 MG TAB PO SCH (08:20)
[2019-05-22] MEDS: ATORVASTATIN 20 MG TAB PO SCH (08:20)
[2019-05-22] MEDS: DILTIAZEM ORAL 30 MG TAB PO SCH ×3 (08:20→22:37)
[2019-05-22] MEDS: ASPIRIN 81 MG PO SCH (08:20)
[2019-05-22] MEDS: FAMOTIDINE 20 MG TAB PO SCH ×2 (08:20→20:53)
[2019-05-22] MEDS ORDERED: DOXYCYCLINE 100 MG CAP PO SCH (10:15)
[2019-05-22] MEDS: IPRATROPIUM-ALBUTEROL 3 ML NEB INHALATION SCH ×3 (11:02→19:56)
[2019-05-22] MEDS: METHIMAZOLE 5 MG TAB PO SCH ×3 (11:05→22:37)
[2019-05-22] MEDS: guaiFENesin 600 MG TABLET.ER PO SCH ×2 (11:05→20:53)
--- NOTE | 2019-05-22 13:28 | P.PN ---
Subjective 71-year-old gentleman came in because of atrial flutter appears to be new onset patient was started on anti-correlation by cardiology and patient is on beta adolfo and Cardizem is being added. Patient is still wheezing quite a bit of neurology validate the patient is started on antibiotics and was switched to IV steroids from oral steroids. Patient may have some pleural pericarditis K echo cardiac exam showed only mild effusion around the heart. 05/22/2019 patient heart rate is well controlled at this time yesterday dictated as patient is on antibiotics and IV steroids although patient is only on oral steroids not done in IV steroids and patient is not on any antibiotics or do not believe and medics at necessary. Patient the still has wheezing but significant improved compared to yesterday unable to bring up any phlegm patient was started on Mucinex. I'm expecting his wheezing to improve by tomorrow possibility of discharge tomorrow if that happens. Constitutional: Denied any fatigue denied any fever. Cardio vascular: denied any chest pain, palpitations Gastrointestinal denied any nausea vomiting Pulmonary: As mentioned in HPI Neurologic denied any new focal deficits All inpatient medications were reviewed and appropriate changes in these medications as dictated in the interval history and assessment and plan. Objective - Vital Signs Vital signs: Vital Signs Temp 98.2 F 05/22/19 08:25 Pulse 67 05/22/19 11:46 Resp 18 05/22/19 11:46 BP 110/73 05/22/19 11:46 Pulse Ox 96 05/22/19 11:46 Intake & Output 05/21/19 05/22/19 05/22/19 18:59 06:59 18:59 Intake Total 293.893 100 480 Balance 293.893 100 480 Weight 83.7 kg Intake: Intake, IV Titration 93.893 Amount Heparin Sod,Pork in 0.45% 93.893 NaCl 25,000 unit In 0.45 % NaCl 1 250ml.bag @ 12 UNITS/KG/HR 10.015 mls/hr IV .Q24H [facility] Rx#: [id number] Oral 200 100 480 Other: Voiding Method Toilet Toilet Urinal Urinal # Voids 3 1 - Exam PHYSICAL EXAMINATION: GENERAL: The patient is alert and oriented x3, not in any acute distress. Well developed, well nourished. HEENT: Pupils are round and equally reacting to light. EOMI. No scleral icterus. No conjunctival pallor. Normocephalic, atraumatic. No pharyngeal erythema. No thyromegaly. CARDIOVASCULAR: S1 and S2 present. No murmurs, rubs, or gallops. Rate controlled now PULMONARY: Does have wheezing on exam significant improved compared to yesterday ABDOMEN: Soft, nontender, nondistended, normoactive bowel sounds. No palpable organomegaly. MUSCULOSKELETAL: No joint swelling or deformity. EXTREMITIES: No cyanosis, clubbing, or pedal edema. NEUROLOGICAL: Gross neurological examination did not reveal any focal deficits. SKIN: No rashes. - Labs CBC & Chem 7: 05/22/19 05:40 05/22/19 05:40 Labs: Abnormal Lab Results - Last 24 Hours (Table) 05/22/19 05/22/19 Range/Units 05:40 05:40 WBC 17.8 H (3.8-10.6) k/uL MCV 101.3 H (80.0-100.0) fL Neutrophils # 15.8 H (1.3-7.7) k/uL Lymphocytes # 0.9 L (1.0-4.8) k/uL Carbon Dioxide 34 H (22-30) mmol/L BUN 22 H (9-20) mg/dL Creatinine 0.56 L (0.66-1.25) mg/dL Glucose 102 H (74-99) mg/dL Assessment and Plan Plan: -COPD with acute exacerbation: Patient will be continued on oral steroids will not require any antibiotics -Chest pain: Appears to be pleuropericarditis probably viral etiology continue with Toradol and prednisone with GI prophylaxis -Moderate pericardial effusion: Echocardiogram showed only mild effusion -atrial flutter with rapid ventricular rate: Patient was on beta adolfo was started on Cardizem and anticoagulation, patient is presently rate controlled -Congestive heart failure mildly depressed ejection fraction chronic systolic dysfunction ejection fraction of 45-50%, not in acute exacerbation -Mild nonspecific elevation of liver enzymes which normalizes now no further testing is necessary -Leukocytosis reactive in natureAnn secondary to systemic steroids -Hypertension because of the Cardizem I have concerns about hypotension because of which I'll not start him on any of his antidepressants medications -Patient will need GI prophylaxis with Pepcid
[2019-05-22] MEDS ORDERED: LACTULOSE 20 GM/30 ML CUP PO ONE (14:24)
--- NOTE | 2019-05-22 14:39 | P.PN ---
Subjective Progress Note Date: 05/22/19 This is a 63-year-old gentleman with known history of hypertension, hyperlipidemia, chronic nicotine dependence, who presented to the hospital with symptoms of progressive dyspnea with associated cough and wheezing. He was noted to be in atrial flutter with rapid ventricular response. Patient has no prior documented history of arrhythmia, he's been followed by in the office. Patient was seen and examined this morning, his breathing is significantly improved yet he continues to have a significant amount of wheezing. Patient had an echocardiogram with Doppler study performed which revealed an ejection fraction of 45-50%, which was somewhat similar to his prior echo. Blood pressure today 110/70 with a heart rate in the 60s, 96% on room air. Blood cell count 17.8, hemoglobin 14.1, platelet count 263. Sodium 138, potassium 4.6, BUN 22 and creatinine 0.5 . Remaining in normal sinus rhythm today. Objective - Vital Signs Vital signs: Vital Signs Temp 98.2 F 05/22/19 08:25 Pulse 67 05/22/19 11:46 Resp 18 05/22/19 11:46 BP 110/73 05/22/19 11:46 Pulse Ox 96 05/22/19 11:46 Intake & Output 05/21/19 05/22/19 05/22/19 18:59 06:59 18:59 Intake Total 293.893 100 480 Balance 293.893 100 480 Weight 83.7 kg Intake: Intake, IV Titration 93.893 Amount Heparin Sod,Pork in 0.45% 93.893 NaCl 25,000 unit In 0.45 % NaCl 1 250ml.bag @ 12 UNITS/KG/HR 10.015 mls/hr IV .Q24H [facility] Rx#: [id number] Oral 200 100 480 Other: Voiding Method Toilet Toilet Urinal Urinal # Voids 3 1 - Exam PHYSICAL EXAMINATION: GENERAL: 63-year-old gentleman in no acute distress at the time of my examination HEENT: Head is atraumatic, normocephalic. Pupils equal, round. Sclera anicteric. Conjunctiva are clear. Mucous membranes of the mouth are moist. Neck is supple. There is no elevated jugular venous pressure. No carotid bruit is heard. HEART EXAMINATION: Heart S1, S2 normal. No murmur or gallop heard. CHEST EXAMINATION: On's reveal scattered wheezing throughout, air exchange today ABDOMEN: Soft, nontender. Bowel sounds are heard. No organomegaly noted. EXTREMITIES: 2+ peripheral pulses with no evidence of peripheral edema and no calf tenderness noted. NEUROLOGIC patient is awake, alert and oriented 3 . . - Labs CBC & Chem 7: 05/22/19 05:40 05/22/19 05:40 Labs: Abnormal Lab Results - Last 24 Hours (Table) 05/22/19 05/22/19 Range/Units 05:40 05:40 WBC 17.8 H (3.8-10.6) k/uL MCV 101.3 H (80.0-100.0) fL Neutrophils # 15.8 H (1.3-7.7) k/uL Lymphocytes # 0.9 L (1.0-4.8) k/uL Carbon Dioxide 34 H (22-30) mmol/L BUN 22 H (9-20) mg/dL Creatinine 0.56 L (0.66-1.25) mg/dL Glucose 102 H (74-99) mg/dL Assessment and Plan Plan: Assessment and plan #1 respiratory infection with probable tracheobronchitis #2 typical atrial flutter, paroxysmal, currently in normal sinus rhythm #3 chronic nicotine dependence with COPD #4 hypertension #5 hyperlipidemia #6 history of abdominal aortic aneurysm Plan From cardiology's perspective, we'll recommend to continue the patient on his current medications. Continue to monitor for another 24 hours. DNP note has been reviewed, I agree with a documented findings and plan of care. Patient was seen and examined.
[2019-05-22] MEDS: DOCUSATE 100 MG CAP PO SCH (20:53)
[2019-05-23 06:40] LABS: Basophils % (A) 0 %; Eosinophils % (A) 0 %; HCT 45.1 % (39.0-53.0); HGB 14.5 gm/dL (13.0-17.5); Lymphocytes % (A) 8 %; MCH 32.6 pg (25.0-35.0); MCHC 32.1 g/dL (31.0-37.0); MCV 101.5 fL (80.0-100.0); Mean Platelet Volume 8.7; Monocytes # (A) 0.7 k/uL (0-1.0); Monocytes % (A) 6 %; Neutrophils # (A) 9.5 k/uL (1.3-7.7); Neutrophils % (A) 84 %; Platelet Count 213 k/uL (150-450); RBC 4.45 m/uL (4.30-5.90); RDW 12.8 % (11.5-15.5); WBC 11.3 k/uL (3.8-10.6)
[2019-05-23 06:47] LABS: African American GFR (CKD) >90 (>60 ml/min/1.73 sqM); Anion Gap 3 mmol/L; Blood Urea Nitrogen 15 mg/dL (9-20); Calcium 8.7 mg/dL (8.4-10.2); Carbon Dioxide 38 mmol/L (22-30); Chloride 98 mmol/L (98-107); Glucose 96 mg/dL (74-99); Potassium 4.1 mmol/L (3.5-5.1); Sodium 139 mmol/L (137-145)
[2019-05-23 08:16] VITALS: BP 135/81; RESP 18; TEMP 97.3
[2019-05-23] MEDS: DILTIAZEM ORAL 30 MG TAB PO SCH (08:18)
[2019-05-23] MEDS: guaiFENesin 600 MG TABLET.ER PO SCH (08:19)
[2019-05-23] MEDS: APIXABAN 5 MG TAB PO SCH (08:19)
[2019-05-23] MEDS: DOCUSATE 100 MG CAP PO SCH (08:19)
[2019-05-23] MEDS: METHIMAZOLE 5 MG TAB PO SCH (08:19)
[2019-05-23] MEDS: predniSONE 20 MG TAB PO SCH (08:19)
[2019-05-23] MEDS: ATORVASTATIN 20 MG TAB PO SCH (08:19)
[2019-05-23] MEDS: METOPROLOL TARTRATE 50 MG TAB PO SCH (08:19)
[2019-05-23] MEDS: FAMOTIDINE 20 MG TAB PO SCH (08:19)
[2019-05-23] MEDS: IPRATROPIUM-ALBUTEROL 3 ML NEB INHALATION SCH ×2 (08:23→11:56)
[2019-05-23 08:41] VITALS: PULSE 72
--- NOTE | 2019-05-23 11:55 | PN ---
PROGRESS NOTE Mr. Hutchinson is a 63-year-old male who presented with exacerbation of COPD and was found to be in atrial flutter. He has converted to sinus mechanism and continues to be in sinus mechanism. He is feeling well this morning. His breathing has been stable. He denies any dizziness or palpitation. He denies any nausea or cough. He continues to be at this time on Eliquis 5 mg twice a day, Lipitor 20 mg daily, diltiazem 30 mg 3 times a day, metoprolol tartrate 50 mg twice a day. PHYSICAL EXAMINATION: Blood pressure 135/80 with the heart rate in the 60. LUNGS: With improved air exchange with scattered few wheezes. HEART: Regular rate and rhythm. S1, S2. No S3. No rub. ABDOMEN: Soft, nontender. EXTREMITIES: No edema. LAB DATA: Lab data revealed BUN and creatinine of 15 and 0.56, potassium 4.1. IMPRESSION: 1. Exacerbation of chronic obstructive pulmonary disease, improving. 2. Paroxysmal atrial flutter, anticoagulated, back in sinus mechanism. 3. History of chronic tobacco use. 4. Hypertension. 5. Hyperlipidemia. 6. History of abdominal aortic aneurysm. RECOMMENDATION: From the cardiac standpoint, he should be able to be discharged home today and followed as an outpatient with Dr. Gilbert. MMODL / EMANUELN: [id number] /
--- NOTE | 2019-05-23 12:47 | P.DS ---
Providers Date of admission: 05/20/19 14:28 Attending physician: Berkley Whiting Consults: 05/20/19 14:29 Consult Physician Routine Consulting Provider: Jenny Woods Consult Reason/Comments: rapid atrial flutter, leukocytosis Do you want consulting provider notified?: Yes Primary care physician: [facility] Course: 71-year-old gentleman came in because of atrial flutter appears to be new onset patient was started on anti-correlation by cardiology and patient is on beta adolfo and Cardizem is being added. Patient is still wheezing quite a bit of neurology validate the patient is started on antibiotics and was switched to IV steroids from oral steroids. Patient may have some pleural pericarditis K echo cardiac exam showed only mild effusion around the heart. 05/22/2019 patient heart rate is well controlled at this time yesterday dictated as patient is on antibiotics and IV steroids although patient is only on oral steroids not done in IV steroids and patient is not on any antibiotics or do not believe and medics at necessary. Patient the still has wheezing but significant improved compared to yesterday unable to bring up any phlegm patient was started on Mucinex. I'm expecting his wheezing to improve by tomorrow possibility of discharge tomorrow if that happens. 05/23/2019 Patient respiratory status improved still wheezing on exam wheezing although improved significantly patient is not requiring any home oxygen patient will be discharged today heart rate is well controlled at this time patient will follow up with the pulmonology as an outpatient. PHYSICAL EXAMINATION: GENERAL: The patient is alert and oriented x3, not in any acute distress. Well developed, well nourished. HEENT: Pupils are round and equally reacting to light. EOMI. No scleral icterus. No conjunctival pallor. Normocephalic, atraumatic. No pharyngeal erythema. No thyromegaly. CARDIOVASCULAR: S1 and S2 present. No murmurs, rubs, or gallops. PULMONARY: Minimal expiratory wheezing significant on the right side. ABDOMEN: Soft, nontender, nondistended, normoactive bowel sounds. No palpable organomegaly. MUSCULOSKELETAL: No joint swelling or deformity. EXTREMITIES: No cyanosis, clubbing, or pedal edema. NEUROLOGICAL: Gross neurological examination did not reveal any focal deficits. SKIN: No rashes. Assessment and Plan Plan: -COPD with acute exacerbation: -Chest pain: Appears to be pleuropericarditis -Moderate pericardial effusion: Echocardiogram showed only mild effusion -atrial flutter with rapid ventricular rate: As in the rate controlled patient is being discharged on metoprolol and Cardizem -Congestive heart failure mildly depressed ejection fraction chronic systolic dysfunction ejection fraction of 45-50%, not in acute exacerbation Possible hyperthyroidism patient was started on methimazole, TSH need to be repeated in about a month -Mild nonspecific elevation of liver enzymes normalized and no further testing is necessary -Leukocytosis reactive in nature. -Hypertension -Patient will need GI prophylaxis with Pepcid Patient Condition at Discharge: Stable Plan - Discharge Summary Discharge Rx Participant: No New Discharge Prescriptions: New Diltiazem Oral [Cardizem*] 30 mg PO TID #90 tab Apixaban [Eliquis] 5 mg PO BID #60 tab Metoprolol Tartrate [Lopressor] 50 mg PO BID #60 tab guaiFENesin [Mucinex] 600 mg PO Q12HR #20 tablet.er Famotidine [Pepcid] 20 mg PO BID #60 tab Methimazole [Tapazole] 5 mg PO TID #90 tab Polyethylene Glycol 3350 [Miralax] 17 gm PO DAILY PRN #15 packet PRN Reason: Constipation predniSONE 10 mg PO DAILY #30 tab Tiotropium [place] [Spiriva] 1 cap INHALATION DAILY #1 device Budesonide-Formot 160-4.5 Mcg [Symbicort 160-4.5 Mcg Inhaler] 2 puff INHALATION BID #1 inhaler Albuterol Inhaler [Ventolin Hfa Inhaler] 1 - 2 puff INHALATION Q6HR PRN #1 i nhaler PRN Reason: Shortness Of Breath Or Wheezing Continue Loratadine [Claritin] 10 mg PO DAILY Atorvastatin [Lipitor] 20 mg PO DAILY Multivitamins, Thera [Multivitamin (formulary)] 1 tab PO DAILY Discontinued Lisinopril-Hctz 20-12.5 mg [Zestoretic 20-12.5] 1 tab PO DAILY Aspirin 81 mg PO DAILY Discharge Medication List Atorvastatin [Lipitor] 20 mg PO DAILY 05/20/19 [History] Loratadine [Claritin] 10 mg PO DAILY 05/20/19 [History] Multivitamins, Thera [Multivitamin (formulary)] 1 tab PO DAILY 05/20/19 [History] Albuterol Inhaler [Ventolin Hfa Inhaler] 1 - 2 puff INHALATION Q6HR PRN #1 inhaler 05/23/19 [Rx] Apixaban [Eliquis] 5 mg PO BID #60 tab 05/23/19 [Rx] Budesonide-Formot 160-4.5 Mcg [Symbicort 160-4.5 Mcg Inhaler] 2 puff INHALATION BID #1 inhaler 05/23/19 [Rx] Diltiazem Oral [Cardizem*] 30 mg PO TID #90 tab 05/23/19 [Rx] Famotidine [Pepcid] 20 mg PO BID #60 tab 05/23/19 [Rx] Methimazole [Tapazole] 5 mg PO TID #90 tab 05/23/19 [Rx] Metoprolol Tartrate [Lopressor] 50 mg PO BID #60 tab 05/23/19 [Rx] Polyethylene Glycol 3350 [Miralax] 17 gm PO DAILY PRN #15 packet 05/23/19 [Rx] Tiotropium [place] [Spiriva] 1 cap INHALATION DAILY #1 device 05/23/19 [Rx] guaiFENesin [Mucinex] 600 mg PO Q12HR #20 tablet.er 05/23/19 [Rx] predniSONE 10 mg PO DAILY #30 tab 05/23/19 [Rx] Follow up Appointment(s)/Referral(s): Weston Gilbert MD [STAFF PHYSICIAN] - 05/31/19 10:45 am (Monday) Shaniqua Hansen NPC [Nurse Practitioner] - 06/12/19 2:30 pm (Monday) Koby Holguin MD [Primary Care Provider] - 05/30/19 9:30 am ( with Sanjuana -previously scheduled appointment) Megan Gomez MD [STAFF PHYSICIAN] - 1 Week Patient Instructions/Handouts: Atrial Flutter (DC), COPD (Chronic Obstructive Pulmonary Disease) (DC), Safe Use of Anticoagulants (DC) Activity/Diet/Wound Care/Special Instructions: pt qualifies for $10/mo Kellie-he was provided coupon Discharge Disposition: HOME SELF-CARE
== END 2019-05-23 12:41 | disposition home or self-care (01) | DRG 191 ==
LOC: EC 10:19 → 3SCARD 14:28
PROVIDERS: ADMIT Internal Medicine; ATTEND Internal Medicine
DX: J44.1 Chronic obstructive pulmonary disease with (acute) exacerbation (principal); I31.3 Pericardial effusion (noninflammatory); I42.9 Cardiomyopathy, unspecified; I48.3 Typical atrial flutter; I47.1 Supraventricular tachycardia; I50.22 Chronic systolic (congestive) heart failure; I30.1 Infective pericarditis; I95.9 Hypotension, unspecified; I11.0 Hypertensive heart disease with heart failure; I08.1 Rheumatic disorders of both mitral and tricuspid valves; E78.5 Hyperlipidemia, unspecified; F17.200 Nicotine dependence, unspecified, uncomplicated; I49.3 Ventricular premature depolarization; D72.829 Elevated white blood cell count, unspecified; R74.8 Abnormal levels of other serum enzymes; I71.4 Abdominal aortic aneurysm, without rupture; E05.90 Thyrotoxicosis, unspecified without thyrotoxic crisis or storm; Z79.82 Long term (current) use of aspirin; Z79.899 Other long term (current) drug therapy; Z96.641 Presence of right artificial hip joint; Z71.6 Tobacco abuse counseling
CPT/HCPCS: 36415; 71045; 71275; 80048; 80053; 81003; 82550; 83735; 83880; 84439; 84443; 84484; 85025; 85379; 85610; 85730; 93005; 93306; 94640; 94760; 96361; 96365; 96366; 96375; 96376; 99291

== ENCOUNTER → 2019-05-31 | Outpatient (CLI) | payer BC | END | disposition home or self-care (01) | LOC: LABWHC1 11:20 | PROVIDERS: ATTEND Nurse Practitioner Adult Health | DX: I48.0 Paroxysmal atrial fibrillation (principal) | CPT/HCPCS: 36415; 84443; 84481 ==

== ENCOUNTER 2019-06-19 12:41 | Observation (INO) | payer BC ==
[2019-06-19] MEDS ORDERED: NITROGLYCERIN OINT 1 INCH/GM PACKET TOPICAL STA (13:11)
[2019-06-19] MEDS ORDERED: ASPIRIN 81 MG PO STA (13:11)
[2019-06-19] MEDS ORDERED: NITROGLYCERIN SL TABS 0.4 MG TAB SUBLINGUAL STA ×2 (13:11)
[2019-06-19 13:29] LABS: Partial Thromboplastin Time 28.5 sec (22.0-30.0); Prothrombin Time 10.5 sec (9.0-12.0)
--- NOTE | 2019-06-19 13:30 | ED ---
General Adult HPI - General Chief complaint: Chest Pain Stated complaint: chest pain, SAMIA Time Seen by Provider: 06/19/19 12:45 Source: patient, RN notes reviewed Mode of arrival: ambulatory Limitations: no limitations - History of Present Illness Initial comments: This is a 63-year-old male who presents emergency Department with a past history of atrial fibrillation. Patient comes in today because he started having chest pain over the last 2 days it comes and goes. Patient states it seems to be worse when he is in bed lying on his left side but that is not always the case. Patient has not noticed that exertion makes it worse. Patient states it is associated with significant shortness of breath per patient states currently he does have the pain and shortness of breath. Patient denies any diaphoretic episodes. Patient denies nausea. Patient denies any radiation of the pain. Patient denies any recent fever chills or cough. Patient denies abdominal pain - Related Data Home Medications Medication Instructions Recorded Confirmed Atorvastatin [Lipitor] 20 mg PO DAILY 05/20/19 06/19/19 Loratadine [Claritin] 10 mg PO DAILY 05/20/19 06/19/19 Albuterol Inhaler [Ventolin Hfa 1 - 2 puff INHALATION RT-Q6H PRN 06/19/19 06/19/19 Inhaler] Budesonide-Formot 160-4.5 Mcg 2 puff INHALATION RT-BID 06/19/19 06/19/19 [Symbicort 160-4.5 Mcg Inhaler] Famotidine [Pepcid] 20 mg PO DAILY 06/19/19 06/19/19 Methimazole [Tapazole] 5 mg PO DAILY 06/19/19 06/19/19 Metoprolol Succinate (ER) [Toprol 150 mg PO DAILY 06/19/19 06/19/19 Xl] buPROPion HCL [Wellbutrin SR] 150 mg PO BID 06/19/19 06/19/19 guaiFENesin [Mucinex] 600 mg PO Q12HR PRN 06/19/19 06/19/19 Previous Rx's Medication Instructions Recorded Apixaban [Eliquis] 5 mg PO BID #60 tab 05/23/19 Polyethylene Glycol 3350 [Miralax] 17 gm PO DAILY PRN #15 packet 05/23/19 Tiotropium [place] [Spiriva] 1 cap INHALATION DAILY #1 device 05/23/19 Allergies Allergy/AdvReac Type Severity Reaction Status Date / Time No Known Allergies Allergy Verified 06/19/19 12:42 Review of Systems ROS Statement: Those systems with pertinent positive or pertinent negative responses have been documented in the HPI. ROS Other: All systems not noted in ROS Statement are negative. Past Medical History Past Medical History: COPD, Hyperlipidemia, Hypertension, Vascular Disorder History of Any Multi-Drug Resistant Organisms: None Reported Past Surgical History: Hernia Repair, Joint Replacement Additional Past Surgical History / Comment(s): right hip replacement Past Anesthesia/Blood Transfusion Reactions: No Reported Reaction Past Psychological History: No Psychological Hx Reported Smoking Status: Current some day smoker Past Alcohol Use History: Rare Past Drug Use History: None Reported - Past Family History Mother Additional Family Medical History / Comment(s): colon polps Father Family Medical History: AFIB, Hypertension Additional Family Medical History / Comment(s): AAA General Exam - General Exam Comments Initial Comments: GENERAL: Patient is well-developed and well-nourished. Patient is nontoxic and well- hydrated and is in mild distress. ENT: Neck is soft and supple. No significant lymphadenopathy is noted. Oropharynx is clear. Moist mucous membranes. Neck has full range of motion without eliciting any pain. EYES: The sclera were anicteric and conjunctiva were pink and moist. Extraocular movements were intact and pupils were equal round and reactive to light. Eyelids were unremarkable. PULMONARY: Unlabored respirations. Good breath sounds bilaterally. No audible rales rhonchi or wheezing was noted. CARDIOVASCULAR: There is a regular rate and rhythm without any murmurs gallops or rubs. ABDOMEN: Soft and nontender with normal bowel sounds. No palpable organomegaly was noted. There is no palpable pulsatile mass. SKIN: Skin is clear with no lesions or rashes and otherwise unremarkable. NEUROLOGIC: Patient is alert and oriented x3. Cranial nerves II through XII are grossly intact. Motor and sensory are also intact. Normal speech, volume and content. Symmetrical smile. MUSCULOSKELETAL: Normal extremities with adequate strength and full range of motion. No lower extremity swelling or edema. No calf tenderness. LYMPHATICS: No significant lymphadenopathy is noted PSYCHIATRIC: Normal psychiatric evaluation. Limitations: no limitations Course Vital Signs 06/19/19 06/19/19 06/19/19 12:42 13:05 13:30 Temperature 99.6 F Pulse Rate 75 77 80 Respiratory 18 28 H 29 H Rate Blood Pressure 114/75 114/77 O2 Sat by Pulse 96 97 97 Oximetry 06/19/19 06/19/19 06/19/19 13:35 13:43 14:00 Temperature Pulse Rate 75 77 73 Respiratory 18 18 13 Rate Blood Pressure 115/81 116/83 133/83 O2 Sat by Pulse 97 96 97 Oximetry 06/19/19 06/19/19 14:30 14:41 Temperature Pulse Rate 72 74 Respiratory 24 18 Rate Blood Pressure 119/76 123/85 O2 Sat by Pulse 97 96 Oximetry Medical Decision Making - Medical Decision Making EKG shows normal sinus rhythm at 70 bpm MT interval 132 QRS is 88 QT interval 372 QTC is 424. Patient's EKG shows no ST segment elevation or depression or T wave abnormalities are noted. The chest x-ray shows no acute abnormality. Patient received 3 nitroglycerin in the hospital and that took away his pain completely. Patient's been pain-free since. I spoke with Dr. Walsh about keeping the patient he agreed the patient was going to be admitted the patient is admitted for unstable angina I consult cardiology and repeated troponins. - Lab Data Result diagrams: 06/19/19 13:00 06/19/19 13:00 Lab Results 06/19/19 06/19/19 06/19/19 Range/Units 13:00 13:00 13:00 WBC 10.5 (3.8-10.6) k/uL RBC 4.72 (4.30-5.90) m/uL Hgb 15.2 (13.0-17.5) gm/dL Hct 45.0 (39.0-53.0) % MCV 95.3 D (80.0-100.0) fL MCH 32.1 (25.0-35.0) pg MCHC 33.7 (31.0-37.0) g/dL RDW 14.8 (11.5-15.5) % Plt Count 153 (150-450) k/uL Neutrophils % 79 % Lymphocytes % 10 % Monocytes % 7 % Eosinophils % 1 % Basophils % 1 % Neutrophils # 8.2 H (1.3-7.7) k/uL Lymphocytes # 1.1 (1.0-4.8) k/uL Monocytes # 0.8 (0-1.0) k/uL Eosinophils # 0.1 (0-0.7) k/uL Basophils # 0.1 (0-0.2) k/uL PT (9.0-12.0) sec INR (<1.2) APTT (22.0-30.0) sec Sodium 139 (137-145) mmol/L Potassium 4.5 (3.5-5.1) mmol/L Chloride 102 (98-107) mmol/L Carbon Dioxide 29 (22-30) mmol/L Anion Gap 8 mmol/L BUN 16 (9-20) mg/dL Creatinine 0.80 (0.66-1.25) mg/dL Est GFR (CKD-EPI)AfAm >90 (>60 ml/min/1.73 sqM) Est GFR (CKD-EPI)NonAf >90 (>60 ml/min/1.73 sqM) Glucose 149 H (74-99) mg/dL Calcium 9.1 (8.4-10.2) mg/dL Magnesium 2.0 (1.6-2.3) mg/dL Total Bilirubin 0.8 (0.2-1.3) mg/dL AST 31 (17-59) U/L ALT 66 (21-72) U/L Alkaline Phosphatase 111 (38-126) U/L Troponin I (0.000-0.034) ng/mL NT-Pro-B Natriuret Pep 1260 pg/mL Total Protein 6.8 (6.3-8.2) g/dL Albumin 4.0 (3.5-5.0) g/dL 06/19/19 06/19/19 Range/Units 13:00 13:00 WBC (3.8-10.6) k/uL RBC (4.30-5.90) m/uL Hgb (13.0-17.5) gm/dL Hct (39.0-53.0) % MCV (80.0-100.0) fL MCH (25.0-35.0) pg MCHC (31.0-37.0) g/dL RDW (11.5-15.5) % Plt Count (150-450) k/uL Neutrophils % % Lymphocytes % % Monocytes % % Eosinophils % % Basophils % % Neutrophils # (1.3-7.7) k/uL Lymphocytes # (1.0-4.8) k/uL Monocytes # (0-1.0) k/uL Eosinophils # (0-0.7) k/uL Basophils # (0-0.2) k/uL PT 10.5 (9.0-12.0) sec INR 1.0 (<1.2) APTT 28.5 (22.0-30.0) sec Sodium (137-145) mmol/L Potassium (3.5-5.1) mmol/L Chloride (98-107) mmol/L Carbon Dioxide (22-30) mmol/L Anion Gap mmol/L BUN (9-20) mg/dL Creatinine (0.66-1.25) mg/dL Est GFR (CKD-EPI)AfAm (>60 ml/min/1.73 sqM) Est GFR (CKD-EPI)NonAf (>60 ml/min/1.73 sqM) Glucose (74-99) mg/dL Calcium (8.4-10.2) mg/dL Magnesium (1.6-2.3) mg/dL Total Bilirubin (0.2-1.3) mg/dL AST (17-59) U/L ALT (21-72) U/L Alkaline Phosphatase (38-126) U/L Troponin I <0.012 (0.000-0.034) ng/mL NT-Pro-B Natriuret Pep pg/mL Total Protein (6.3-8.2) g/dL Albumin (3.5-5.0) g/dL Disposition Clinical Impression: Unstable angina pectoris Disposition: ADMITTED IP TO THIS HOSP Referrals: Koby Holguin MD [Primary Care Provider] - 1-2 days Time of Disposition: 15:51
[2019-06-19 13:34] LABS: ALT 66 U/L (21-72); AST 31 U/L (17-59); African American GFR (CKD) >90 (>60 ml/min/1.73 sqM); Alkaline Phosphatase 111 U/L (38-126); Anion Gap 8 mmol/L; Basophils # (A) 0.1 k/uL (0-0.2); Basophils % (A) 1 %; Blood Urea Nitrogen 16 mg/dL (9-20); Calcium 9.1 mg/dL (8.4-10.2); Carbon Dioxide 29 mmol/L (22-30); Chloride 102 mmol/L (98-107); Eosinophils # (A) 0.1 k/uL (0-0.7); Eosinophils % (A) 1 %; Glucose 149 mg/dL (74-99); HGB 15.2 gm/dL (13.0-17.5); Lymphocytes # (A) 1.1 k/uL (1.0-4.8); Lymphocytes % (A) 10 %; MCH 32.1 pg (25.0-35.0); MCHC 33.7 g/dL (31.0-37.0); Mean Platelet Volume 7.8; Monocytes # (A) 0.8 k/uL (0-1.0); Monocytes % (A) 7 %; Neutrophils # (A) 8.2 k/uL (1.3-7.7); Neutrophils % (A) 79 %; Platelet Count 153 k/uL (150-450); Potassium 4.5 mmol/L (3.5-5.1); RBC 4.72 m/uL (4.30-5.90); RDW 14.8 % (11.5-15.5); Sodium 139 mmol/L (137-145); Total Bilirubin 0.8 mg/dL (0.2-1.3); Total Protein 6.8 g/dL (6.3-8.2); WBC 10.5 k/uL (3.8-10.6)
[2019-06-19 13:43] LABS: MCV 95.3 fL (80.0-100.0)
--- NOTE | 2019-06-19 13:54 | XR ---
EXAMINATION TYPE: XR chest 2V DATE OF EXAM: 06/19/2019 COMPARISON: Chest x-ray and CT chest May 20, 2019. HISTORY: Chest pain and shortness of breath for 2 days. History of COPD. TECHNIQUE: Frontal and lateral views of the chest are obtained. FINDINGS: There is background chronic emphysematous change without suspicious focal air space opacit y, pleural effusion, or pneumothorax seen. The cardiac silhouette size remains within normal limits. The osseous structures are intact. IMPRESSION: Chronic emphysematous change without acute pulmonary process.
[2019-06-19] MEDS ORDERED: ACETAMINOPHEN TAB 500 MG TAB PO STA (14:11)
[2019-06-19] MEDS ORDERED: NITROGLYCERIN SL TABS 0.4 MG TAB SUBLINGUAL PRN (15:51)
[2019-06-19] MEDS ORDERED: POLYETHYLENE GLYCOL 3350 17 GM POWD.PACK PO PRN (17:10)
[2019-06-19] MEDS ORDERED: ALBUTEROL NEBULIZED 2.5 MG/3 ML INHALATION PRN (17:10)
[2019-06-19] MEDS ORDERED: guaiFENesin 600 MG TABLET.ER PO PRN (17:10)
[2019-06-19] MEDS: ACETAMINOPHEN TAB 325 MG TAB PO PRN (19:04)
[2019-06-19] MEDS: NITROGLYCERIN OINT 1 INCH/GM PACKET TOPICAL SCH ×2 (19:18→23:31)
[2019-06-19] MEDS: buPROPion SR 150 MG TABLET.ER PO SCH (19:37)
[2019-06-19] MEDS: APIXABAN 5 MG TAB PO SCH (19:38)
[2019-06-19] MEDS: SYMBICORT 160-4.5 MCG INHALER INHALATION SCH (19:55)
[2019-06-19] MEDS: METOPROLOL SUCCINATE (ER) 50 MG TAB.ER.24H PO SCH (21:39)
[2019-06-19] MEDS: METHIMAZOLE 5 MG TAB PO SCH ×2 (21:39→23:31)
[2019-06-19] MEDS: FAMOTIDINE 20 MG TAB PO SCH (21:40)
--- NOTE | 2019-06-19 23:38 | P.HPIM ---
History of Present Illness H&P Date: 06/19/19 Chief Complaint: Chest pain Patient is a 63-year-old male with a known history of recently diagnosed atrial fibrillation on anticoagulation with Eliquis, COPD, hypertension, nicotine addiction and osteoarthritis and hyperthyroidism came to ER with complaints of chest pain for the past 2 days on and off. Chest pain mainly left retrosternal, stabbing type. Chest pain is associated shortness of breath. No headache or dizziness or lightheadedness. No radiation of the pain. No diaphoresis. Patient says that chest pain seems to get worse when he rolls to the right or le ft-sided while in the bed. Denied any exertional short of breath. No history of prior cardiac catheterization. Patient was told that he had fluid Around the Heart during previous admission. Patient was given nitroglycerin and aspirin which seemed to relieve his pain. Currently denied any complaints of chest pain. Initial EKG showed normal sinus rhythm. No ST-T wave changes. Chest x-ray showed no acute cardio pulmonary process. Troponin 1 negative. BNP 1260 Patient does take methimazole for hyperthyroidism. Review of Systems Constitutional: Patient denies any fever or chills . No generalized weakness or weight loss. Abdomen: Patient denied nausea vomiting and diarrhea and abdominal pain. Cardiovascular: Patient denies any chest pain or short of breath no palpitations. Respiratory: patient denied any cough is from production. No shortness of breath Neurologic: Patient denied any numbness or tingling headache. Musculoskeletal: Patient denies any complaints of joint swelling or deformity. Skin: Negative Psychiatric: Negative Endocrine: No heat or cold intolerance. No recent weight gain. Genitourinary: No dysuria or hematuria. All other 14 point ROS negative except the above Past Medical History Past Medical History: COPD, Hyperlipidemia, Hypertension, Vascular Disorder History of Any Multi-Drug Resistant Organisms: None Reported Past Surgical History: Hernia Repair, Joint Replacement Additional Past Surgical History / Comment(s): right hip replacement Past Anesthesia/Blood Transfusion Reactions: No Reported Reaction Past Psychological History: No Psychological Hx Reported Smoking Status: Current every day smoker Past Alcohol Use History: Rare Past Drug Use History: None Reported - Past Family History Mother Additional Family Medical History / Comment(s): colon polps Father Family Medical History: AFIB, Hypertension Additional Family Medical History / Comment(s): AAA Medications and Allergies Home Medications Medication Instructions Recorded Confirmed Type Atorvastatin [Lipitor] 20 mg PO DAILY 05/20/19 06/19/19 History Loratadine [Claritin] 10 mg PO DAILY 05/20/19 06/19/19 History Apixaban [Eliquis] 5 mg PO BID #60 tab 05/23/19 06/19/19 Rx Polyethylene Glycol 3350 [Miralax] 17 gm PO DAILY PRN #15 packet 05/23/19 06/19/19 Rx Tiotropium [place] [Spiriva] 1 cap INHALATION DAILY #1 device 05/23/19 06/19/19 Rx Albuterol Inhaler [Ventolin Hfa 1 - 2 puff INHALATION RT-Q6H PRN 06/19/19 06/19/19 History Inhaler] Budesonide-Formot 160-4.5 Mcg 2 puff INHALATION RT-BID 06/19/19 06/19/19 History [Symbicort 160-4.5 Mcg Inhaler] Famotidine [Pepcid] 20 mg PO BID 06/19/19 06/19/19 History Methimazole [Tapazole] 5 mg PO TID 06/19/19 06/19/19 History Metoprolol Succinate (ER) [Toprol 150 mg PO HS 06/19/19 06/19/19 History Xl] buPROPion HCL [Wellbutrin SR] 150 mg PO BID 06/19/19 06/19/19 History guaiFENesin [Mucinex] 600 mg PO Q12HR PRN 06/19/19 06/19/19 History Allergies Allergy/AdvReac Type Severity Reaction Status Date / Time No Known Allergies Allergy Verified 06/19/19 12:42 Physical Exam Vitals: Vital Signs Temp Pulse Pulse Resp BP BP Pulse Ox 06/19/19 20:00 18 06/19/19 19:53 98.1 F 74 99/67 95 06/19/19 18:41 98 06/19/19 17:21 98.2 F 73 18 124/77 94 L 06/19/19 17:09 99.6 F 74 18 123/85 96 06/19/19 14:41 74 18 123/85 96 06/19/19 14:30 72 24 119/76 97 06/19/19 14:00 73 13 133/83 97 06/19/19 13:43 77 18 116/83 96 06/19/19 13:35 75 18 115/81 97 06/19/19 13:30 80 29 H 114/77 97 06/19/19 13:05 77 28 H 97 06/19/19 12:42 99.6 F 75 18 114/75 96 Intake and Output 06/19/19 06/19/19 06/19/19 06:59 14:59 22:59 Intake Total 500 Balance 500 Intake: Amount of Fluid Infused ( 500 ml) Other: Voiding Method Toilet # Voids 1 Weight 83.915 kg PHYSICAL EXAMINATION: Patient is lying in the bed comfortably, no acute distress, awake alert and oriented.. HEENT: Normocephalic. Neck is supple. Pupils reactive. Nostrils clear. Oral cavity is moist. Ears reveal no drainage. Neck reveals no JVD, carotid bruits, or thyromegaly. CHEST EXAMINATION: Trachea is central. Symmetrical expansion. Lung griffith clear to auscultation and percussion. CARDIAC: Normal S1, S2 with no gallops. No murmurs ABDOMEN: Soft. Bowel sounds normal. No organomegaly. No abdominal bruits. Extremities: reveal no edema. No clubbing or cyanosis Neurologically awake, alert, oriented x3 with well-coordinated movements. No focal deficits noted Skin: No rash or skin lesions. Psychiatric: Coperative. Nonsuicidal Musculoskeletal: No joint swelling or deformity. Normal range of motion. Results CBC & Chem 7: 06/19/19 13:00 06/19/19 13:00 Labs: Abnormal Lab Results - Last 24 Hours (Table) 06/19/19 06/19/19 Range/Units 13:00 13:00 Neutrophils # 8.2 H (1.3-7.7) k/uL Glucose 149 H (74-99) mg/dL Thrombosis Risk Factor Assmnt - DVT/VTE Prophylaxis DVT/VTE Prophylaxis: Pharmacologic Prophylaxis ordered - Choose All That Apply Any of the Below Risk Factors Present?: No Other Risk Factors: Yes Each Risk Factor Represents 2 Points: Age 61-74 years Thrombosis Risk Factor Assessment Total Risk Factor Score: 2 Thrombosis Risk Factor Assessment Level: Low Risk Assessment and Plan Assessment: Chest pain. Atypical in nature. rule out ACS. Possible acute pericarditis cannot be ruled out. Paroxysmal atrial fibrillation. On anticoagulation with Eliquis Hypothyroidism Hypertension Hyperlipidemia COPD Osteoarthritis Nicotine addiction GI prophylaxis. Plan: Patient will be continued on telemetry monitoring. Initial EKG and troponin negative. We'll check TSH, ESR and CRP level. With aspirin and statins and other home medications. Cardiology was consulted. Further recommendations based on the clinical course. Smoking cessation has been counseled extensively. Discussed with the patient and his son at bedside. Time with Patient: Greater than 30
[2019-06-20] MEDS: ACETAMINOPHEN TAB 325 MG TAB PO PRN (00:02)
[2019-06-20 03:55] VITALS: RESP 18
[2019-06-20] MEDS: NITROGLYCERIN OINT 1 INCH/GM PACKET TOPICAL SCH (06:17)
[2019-06-20 06:37] LABS: C Reactive Protein 58.1 mg/L (<10.0)
[2019-06-20] MEDS: IPRATROPIUM 0.5 MG/2.5 ML NEBU INHALATION SCH ×4 (07:59→20:15)
[2019-06-20] MEDS: SYMBICORT 160-4.5 MCG INHALER INHALATION SCH ×2 (07:59→20:15)
[2019-06-20] MEDS ORDERED: ASPIRIN 325 MG TAB PO SCH (09:00)
[2019-06-20] MEDS ORDERED: METOPROLOL SUCCINATE (ER) 50 MG TAB.ER.24H PO SCH (09:00)
[2019-06-20] MEDS ORDERED: METHIMAZOLE 5 MG TAB PO SCH (09:00)
[2019-06-20] MEDS ORDERED: FAMOTIDINE 20 MG TAB PO SCH (09:00)
[2019-06-20] MEDS: FAMOTIDINE 20 MG TAB PO SCH ×2 (09:08→20:09)
[2019-06-20] MEDS: ATORVASTATIN 20 MG TAB PO SCH (09:08)
[2019-06-20] MEDS: APIXABAN 5 MG TAB PO SCH ×2 (09:08→20:09)
[2019-06-20] MEDS: LORATADINE 10 MG TAB PO SCH (09:08)
--- NOTE | 2019-06-20 09:08 | CONS ---
CONSULTATION Mr. Hutchinson is a 63-year-old male with a history of chronic severe obstructive lung disease, history of chronic tobacco use with history of paroxysmal atrial flutter who presented with symptoms of chest discomfort. The discomfort occurred for the last 3 days better in certain positions and worse with deep breathing. He was dyspneic as well, but he denies any cough. He came into the emergency room subsequently admitted. The patient has been followed by Dr. Gilbert on a regular basis, was admitted in May of this year with atrial flutter, rapid ventricular response and subsequently converted to sinus mechanism. His echocardiogram during that admission showed ejection fraction 45% to 50%, which is stable compared with the prior testing. The patient had a prior history of mild cardiomyopathy, history of hypertension, hyperlipidemia, as well as stable abdominal aortic aneurysm. He has cut down on his smoking but he continues to smoke minimally according to him. He denies any clear PND or orthopnea. He has no palpitation or dizziness. MEDICATION: His medications at home include Pepcid, Tapazole 5 mg 3 times a day, Toprol-XL 150 mg daily, Mucinex, Wellbutrin, Spiriva, Claritin, Symbicort, Lipitor 20 mg daily, Eliquis 5 mg twice a day, and albuterol. REVIEW OF SYSTEMS: RESPIRATORY SYSTEM: He has a history of chronic obstructive lung disease with wheezing. GI SYSTEM: No recent GI bleed. No peptic ulcer disease. SYSTEM: No dysuria or hematuria. NERVOUS SYSTEM: No history of stroke or seizure. PHYSICAL EXAMINATION: He is a 63-year-old male, alert, oriented, in no apparent distress. Blood pressure 126/80 with the heart rate in the 70s. HEAD: Normocephalic. EYES: Sclerae anicteric. NECK: Good carotid upstroke with transmitted murmur. LUNGS: With decreased air exchange and scattered wheezes bilaterally. HEART: Regular rate and rhythm. S1, S2. No S3 with systolic murmur heard at the base. No diastolic murmur. No rub. ABDOMEN: Soft, nontender. Positive bowel sounds. No organomegaly. EXTREMITIES: No edema. Intact distal pulses. EKG reveals sinus mechanism, rate of 78, borderline left axis deviation with nonspecific ST-T wave changes. Chest x-ray is consistent with emphysema. IMPRESSION: 1. Chest discomfort atypical for ischemic heart disease, musculoskeletal in etiology and respirophasic consistent with his history of chronic obstructive pulmonary disease. The patient has underwent a myocardial perfusion imaging as an outpatient recently that showed no evidence of inducible ischemia. 2. History of chronic obstructive lung disease with chronic tobacco use. 3. Paroxysmal atrial flutter, remains in sinus mechanism. 4. Hypertension. 5. Hyperlipidemia. 6. History of abdominal aortic aneurysm, stable. 7. History of mild cardiomyopathy with no evidence of congestive heart failure. RECOMMENDATION: From the cardiac standpoint, we will continue present therapy. I see no indication for further cardiac workup at this time. I had a long discussion with the patient regarding the importance of smoking cessation. He will follow up as an outpatient with Dr. Gilbert. Thank you for this consult. We will follow with you. CRISTOPHER / EMANUELN: [id number] /
[2019-06-20] MEDS: buPROPion SR 150 MG TABLET.ER PO SCH ×2 (10:04→20:09)
[2019-06-20] MEDS: METHIMAZOLE 5 MG TAB PO SCH ×3 (10:04→20:09)
[2019-06-20] MEDS ORDERED: MAG HYDROX/AL HYDROX/SIMETH 30 ML, HYOSCYAMINE ELIXIR 10 ML, CIMETIDINE HCL 300 MG, LID... PO ONE ×4 (10:12)
[2019-06-20] MEDS ORDERED: DOCUSATE 100 MG CAP PO PRN (16:31)
[2019-06-20] MEDS ORDERED: methylPREDNISolone SOD SUCCI 125 MG/2 ML VIAL IV STA (16:34)
[2019-06-20] MEDS ORDERED: GLYCERIN ADULT SUPPOSITORY 1 EACH RECTAL STA (16:37)
[2019-06-20] MEDS: METOPROLOL SUCCINATE (ER) 50 MG TAB.ER.24H PO SCH (20:09)
[2019-06-20] MEDS ORDERED: MELATONIN 5 MG TABLET PO SCH (21:00)
--- NOTE | 2019-06-20 21:48 | P.PN ---
Subjective Progress Note Date: 06/20/19 Principal diagnosis: Chest pain Patient is a 63-year-old male with a known history of recently diagnosed atrial fibrillation on anticoagulation with Eliquis, COPD, hypertension, nicotine addiction and osteoarthritis and hyperthyroidism came to ER with complaints of chest pain for the past 2 days on and off. Chest pain mainly left retrosternal, stabbing type. Chest pain is associated shortness of breath. No headache or dizziness or lightheadedness. No radiation of the pain. No diaphoresis. Patient says that chest pain seems to get worse when he rolls to the right or le ft-sided while in the bed. Denied any exertional short of breath. No history of prior cardiac catheterization. Patient was told that he had fluid Around the Heart during previous admission. Patient was given nitroglycerin and aspirin which seemed to relieve his pain. Currently denied any complaints of chest pain. Initial EKG showed normal sinus rhythm. No ST-T wave changes. Chest x-ray showed no acute cardio pulmonary process. Troponin 1 negative. BNP 1260 Patient does take methimazole for hyperthyroidism. 06 20 2019 Patient is still complaining of left retrosternal chest pain which could be related to gastritis versus COPD with decreased air entry. Mild expiratory wheeze. Patient was given a dose of IV methylprednisolone. Continue with breathing treatments and continue with Protonix. Cardiology has seen the patient and recent stress test was negative. ESR 16 and CRP 58, not significantly elevated. Otherwise patient denied any fever or chills. Patient does have cough without sputum production. Patient is also complaining of constipation and last bowel movement was 4 days ago. Patient is being continued on stool softeners and bowel regimen. No headache or dizziness or lightheadedness. Current medications reviewed. Objective - Vital Signs Vital signs: Vital Signs Temp 97.9 F 06/20/19 19:44 Pulse 76 06/20/19 20:35 Resp 18 06/20/19 19:44 BP 108/75 06/20/19 19:44 Pulse Ox 94 L 06/20/19 19:44 Intake & Output 06/20/19 06/20/19 06/21/19 06:59 18:59 06:59 Intake Total 1080 Balance 1080 Intake: Oral 480 Other 600 Other: Voiding Method Toilet Toilet # Voids 1 - Exam PHYSICAL EXAMINATION: Patient is lying in the bed comfortably, no acute distress, awake alert and oriented.. HEENT: Normocephalic. Neck is supple. Pupils reactive. Nostrils clear. Oral cavity is moist. Ears reveal no drainage. Neck reveals no JVD, carotid bruits, or thyromegaly. CHEST EXAMINATION: Trachea is central. Symmetrical expansion. Mild expiratory wheeze. Lung griffith clear to auscultation and percussion. CARDIAC: Normal S1, S2 with no gallops. No murmurs ABDOMEN: Soft. Bowel sounds normal. No organomegaly. No abdominal bruits. Extremities: reveal no edema. No clubbing or cyanosis Neurologically awake, alert, oriented x3 with well-coordinated movements. No focal deficits noted Skin: No rash or skin lesions. Psychiatric: Coperative. Nonsuicidal Musculoskeletal: No joint swelling or deformity. Normal range of motion. - Labs CBC & Chem 7: 06/19/19 13:00 06/19/19 13:00 Labs: Abnormal Lab Results - Last 24 Hours (Table) 06/20/19 06/20/19 Range/Units 05:41 05:41 ESR 16 H (0-15) mm/hr C-Reactive Protein 58.1 H (<10.0) mg/L Assessment and Plan Assessment: Chest pain. Atypical in nature. ruled out ACS. Possible gastritis versus underlying COPD.. Possible COPD with mild exacerbation Paroxysmal atrial fibrillation. On anticoagulation with Eliquis Hypothyroidism Hypertension Hyperlipidemia COPD Osteoarthritis Nicotine addiction GI prophylaxis. Plan: Patient will be continued on telemetry monitoring. Initial EKG and troponin negative. Reviewed TSH, ESR and CRP level. Review With aspirin and statins and other home medications. Cardiology has seen the patient. In with stool softeners breathing treatments and one dose of IV steroid was given. Further recommendations based on the clinical course. Smoking cessation has been counseled extensively. Discussed with the patient and his son at bedside. Time with Patient: Greater than 30
[2019-06-21 07:40] VITALS: BP 116/80; PULSE 79; TEMP 97.8
[2019-06-21] MEDS: SYMBICORT 160-4.5 MCG INHALER INHALATION SCH (08:39)
[2019-06-21] MEDS: IPRATROPIUM 0.5 MG/2.5 ML NEBU INHALATION SCH (08:39)
[2019-06-21] MEDS: METHIMAZOLE 5 MG TAB PO SCH (09:01)
[2019-06-21] MEDS: ATORVASTATIN 20 MG TAB PO SCH (09:01)
[2019-06-21] MEDS: APIXABAN 5 MG TAB PO SCH (09:01)
[2019-06-21] MEDS: LORATADINE 10 MG TAB PO SCH (09:01)
[2019-06-21] MEDS: FAMOTIDINE 20 MG TAB PO SCH (09:01)
[2019-06-21] MEDS: buPROPion SR 150 MG TABLET.ER PO SCH (09:01)
--- NOTE | 2019-06-21 11:45 | PN ---
PROGRESS NOTE Mr. Hutchinson is a 63-year-old male who presented with symptoms of chest pain exacerbation of COPD. He is feeling much better today. He is ambulating without difficulty. He has no further chest pain. He denies any dizziness or palpitation. He denies any nausea. He continued to be in sinus mechanism. He has continued to be at this time on Eliquis 5 mg twice a day, Pepcid 20 mg twice a day, metoprolol succinate 150 mg daily. PHYSICAL EXAMINATION: Blood pressure 116/80 with the heart rate in the 70s. LUNGS: No wheezes. HEART: Regular rate and rhythm. S1, S2. No S3. No rub. ABDOMEN: Soft, nontender. EXTREMITIES: No edema. IMPRESSION: 1. Exacerbation of chronic obstructive pulmonary disease with an atypical chest pain. 2. Prior history of smoking. 3. History of atrial flutter back in sinus mechanism, anticoagulated. 4. History of mild cardiomyopathy. RECOMMENDATION: From the cardiac standpoint, he is stable. He should be able to be discharged home and followed as an outpatient with Dr. Gilbert. MMODL / IJN: [id number] /
== END 2019-06-21 11:10 | disposition home or self-care (01) ==
LOC: EC 12:41 → 1SOBS 15:51
PROVIDERS: ADMIT Internal Medicine; ATTEND Internal Medicine
DX: R07.89 Other chest pain (principal); J44.1 Chronic obstructive pulmonary disease with (acute) exacerbation; I48.0 Paroxysmal atrial fibrillation; F17.200 Nicotine dependence, unspecified, uncomplicated; M19.90 Unspecified osteoarthritis, unspecified site; I10 Essential (primary) hypertension; E05.90 Thyrotoxicosis, unspecified without thyrotoxic crisis or storm; E78.5 Hyperlipidemia, unspecified; I48.92 Unspecified atrial flutter; I42.9 Cardiomyopathy, unspecified; I71.4 Abdominal aortic aneurysm, without rupture; K59.00 Constipation, unspecified; Z79.51 Long term (current) use of inhaled steroids; Z79.01 Long term (current) use of anticoagulants; Z79.899 Other long term (current) drug therapy; Z96.641 Presence of right artificial hip joint; Z83.71 Family history of colonic polyps; Z82.49 Family history of ischemic heart disease and other diseases of the circulatory system
CPT/HCPCS: 96374; 99285; 36415; 94640 ×3; 94760; 93005; 83880; 80061; 80053; 85652; 84443; 83735; 84484 ×2; 85025; 85610; 85730; 86140; 71046; G0378 ×3; J2930; S0106 ×3

== ENCOUNTER → 2020-04-09 | Day surgery (SDC) | payer BC ==
[2020-04-07 15:01] VITALS: BMI 27.2
[~2020-04-09] MED LIST: LACTATED RINGERS 1,000 ML IV SCH; LIDOCAINE 1% (10MG/ML) FOR IV START INTRADERMA ONE; LIDOCAINE 1% INJ 10MG/ML (20 ML MDV) ONE; PROPOFOL 10 MG/ML 20 ML VIAL IV ONE
--- NOTE | 2020-04-09 11:14 | P.PCN ---
Date of Procedure: 04/09/20 Description of Procedure: BRIEF HISTORY: Patient is a 64-year-old male who presents for outpatient colonoscopy for screening. Denies any family colon cancer. No change in bowel habits or blood per rectum. Does report a prior colonoscopy approximately 5 years ago. AT that time. PROCEDURE PERFORMED: Colonoscopy with polypectomy. PREOPERATIVE DIAGNOSIS: Screening for malignant neoplasm colon, splenic last colonoscopy was 5 years. ESTIMATED BLOOD LOSS: Minimal. IV sedation per Anesthesia. PROCEDURE: After informed consent was obtained, the patient, was brought into the endoscopy unit. IV sedation was administered by Anesthesia under continuous monitoring. Digital rectal examination was normal. Initially the Olympus CF-190 flexible video colonoscope was then inserted in the rectum, gradually advanced into the cecum without any difficulty. Careful examination was performed as the scope was gradually being withdrawn. Ileocecal valve and the appendiceal orifice were visualized and appeared normal. Prep was excellent. Mucosa of the cecum, ascending colon, transverse colon, descending colon, sigmoid colon, and rectum appeared normal. 2 diminutive ascending colon polyps measuring 1 and 2 mm in size removed with cold forcep polypectomy. One transverse colon polyp measuring 2 mm in size removed. 2 sigmoid colon polyps one and 2 mm in size removed with cold forceps polypectomy. Pedunculated 12 mm sessile polyp 20 cm from the anal verge removed with hot polypectomy. Retroflexion was performed in the rectum and no lesions were seen. The patient tolerated the procedure well. IMPRESSION: 5 diminutive polyps from the ascending colon, transverse colon and sigmoid with cold forcep polypectomy. Large pedunculated rectal polyp removed with hot snare polypectomy. RECOMMENDATIONS: Findings of this examination were discussed with the patient he is okay to resume diet. Okay to resume medications. Await pathology from polypectomy. Would recommend repeat colonoscopy in 3 years for high-risk colon polyp, pending pathology from polypectomies.
[2020-04-10 08:52] VITALS: BP 127/79; PULSE 72; RESP 16; TEMP 97.4
== END ==
LOC: ORWHC2ENDO 09:39
PROVIDERS: ATTEND Internal Medicine
DX: Z12.11 Encounter for screening for malignant neoplasm of colon (principal); D12.2 Benign neoplasm of ascending colon; D12.5 Benign neoplasm of sigmoid colon; D12.3 Benign neoplasm of transverse colon; D12.8 Benign neoplasm of rectum; I48.91 Unspecified atrial fibrillation; I10 Essential (primary) hypertension; J44.9 Chronic obstructive pulmonary disease, unspecified; F17.210 Nicotine dependence, cigarettes, uncomplicated; M19.90 Unspecified osteoarthritis, unspecified site; Z86.010 Personal history of colon polyps; Z79.899 Other long term (current) drug therapy; Z79.51 Long term (current) use of inhaled steroids; Z79.01 Long term (current) use of anticoagulants; Z96.641 Presence of right artificial hip joint; Z98.890 Other specified postprocedural states; Z87.19 Personal history of other diseases of the digestive system
CPT/HCPCS: 45385; 45380; 88305; J2001; J2704

== ENCOUNTER 2022-06-29 13:46 | Emergency (ER) | payer BC ==
[2022-06-29 13:56] VITALS: RESP 16; TEMP 98.4
--- NOTE | 2022-06-29 14:34 | ED ---
General Adult HPI - General Chief complaint: Chest Pain Stated complaint: chest pain - on blood thinners Time Seen by Provider: 06/29/22 14:00 Source: patient Mode of arrival: ambulatory Limitations: no limitations - History of Present Illness Initial comments: Dictation was produced using [employer] dictation software. please excuse any grammatical, word or spelling errors. Chief Complaint: 66-year-old male presents emergency Department with anterior chest pain History of Present Illness: 66-year-old male past medical history of a f ibrillation, COPD and hypertension. Over the last several hours he has had right anterior chest pain. States that it sharp. No associated shortness of breath. Nonradiating. Not associated with diaphoresis or nausea. Patient has been experiencing palpitations throughout the day. The ROS documented in this emergency department record has been reviewed and confirmed by me. Those systems with pertinent positive or negative responses have been documented in the HPI. All other systems are other negative and/or noncontributory. PHYSICAL EXAM: General Impression: Alert and oriented x3, not in acute distress HEENT: Normocephalic atraumatic, extra-ocular movements intact, pupils equal and reactive to light bilaterally, mucous membranes moist. Cardiovascular: Irregular Chest: Able to complete full sentences, no retractions, no tachypnea Abdomen: abdomen soft, non-tender, non-distended, no organomegaly Musculoskeletal: Pulses present and equal in all extremities, no peripheral edema Motor: no focal deficits noted Neurological: CN II-XII grossly intact, no focal motor or sensory deficits noted Skin: Intact with no visualized rashes Psych: Normal affect and mood ED course: 66-year-old well-appearing male multiple comorbidities presents emergency department for pleuritic chest pain. Vital signs Upon arrival are within acceptable limits. EKG shows no signs of ischemia infarction. After evaluation obtained. CBC unremarkable. Cardiac panel is negative. Metabolic panel is unremarkable. Troponin is 0.014. EKG interpretation: Ventricular rate 71, sinus rhythm. 197, QS 106, QTC 396. No KS prolongation, no QTC prolongation, no ST or T-wave changes noted. EKG compared to 06/19/2019 showing no changes. Overall, this EKG is unremarkable Laboratory evaluation obtained. CBC is unremarkable. Coag panel is negative. Metabolic panel is unremarkable. Troponin is 0.014. Patient's chest x-ray is unremarkable. Patient is reevaluated at bedside at 3:50 PM finally stable medical condition. It is recommended the patient be admitted observation for cardiac monitoring however he refused. He was however agreeable for second troponin for further evaluation. Second troponin resulted and was found to be negative. Patient related bedside found to be stable medical condition is given aspirin. Patient discharged and told to follow-up with primary care doctor. - Related Data Home Medications Medication Instructions Recorded Confirmed Atorvastatin Calcium [Lipitor] 40 mg PO HS 06/29/22 06/29/22 Metoprolol Tartrate [Lopressor] 50 mg PO BID 06/29/22 06/29/22 lisinopriL [Zestril] 5 mg PO HS 06/29/22 06/29/22 Previous Rx's Medication Instructions Recorded Apixaban [Eliquis] 5 mg PO BID #60 tab 05/23/19 Allergies Allergy/AdvReac Type Severity Reaction Status Date / Time No Known Allergies Allergy Verified 06/29/22 16:40 Review of Systems ROS Statement: Those systems with pertinent positive or pertinent negative responses have been documented in the HPI. ROS Other: All systems not noted in ROS Statement are negative. Past Medical History Past Medical History: Atrial Fibrillation, COPD, Hypertension, Vascular Disorder History of Any Multi-Drug Resistant Organisms: None Reported Past Surgical History: Hernia Repair, Joint Replacement Additional Past Surgical History / Comment(s): right hip replacement Past Anesthesia/Blood Transfusion Reactions: No Reported Reaction Past Psychological History: No Psychological Hx Reported Smoking Status: Former smoker, Vaper Past Alcohol Use History: Rare Past Drug Use History: None Reported - Past Family History Mother Family Medical History: No Reported History Additional Family Medical History / Comment(s): colon polps Father Family Medical History: AFIB, Hypertension Additional Family Medical History / Comment(s): AAA General Exam Limitations: no limitations Course Vital Signs 06/29/22 13:54 Temperature 98.4 F Pulse Rate 80 Respiratory 16 Rate Blood Pressure 148/85 O2 Sat by Pulse 96 Oximetry Medical Decision Making - Lab Data Result diagrams: 06/29/22 14:36 06/29/22 14:36 Lab Results 06/29/22 06/29/22 06/29/22 Range/Units 14:36 14:36 14:36 WBC 6.6 (3.8-10.6) k/uL RBC 4.64 (4.30-5.90) m/uL Hgb 14.7 (13.0-17.5) gm/dL Hct 44.5 (39.0-53.0) % MCV 95.9 (80.0-100.0) fL MCH 31.7 (25.0-35.0) pg MCHC 33.1 (31.0-37.0) g/dL RDW 12.8 (11.5-15.5) % Plt Count 130 L (150-450) k/uL MPV 9.4 Neutrophils % 77 % Lymphocytes % 13 % Monocytes % 6 % Eosinophils % 1 % Basophils % 1 % Neutrophils # 5.1 (1.3-7.7) k/uL Lymphocytes # 0.8 L (1.0-4.8) k/uL Monocytes # 0.4 (0-1.0) k/uL Eosinophils # 0.1 (0-0.7) k/uL Basophils # 0.0 (0-0.2) k/uL PT 11.6 (9.0-12.0) sec INR 1.1 (<1.2) APTT 27.8 (22.0-30.0) sec Sodium 139 (137-145) mmol/L Potassium 4.1 (3.5-5.1) mmol/L Chloride 101 (98-107) mmol/L Carbon Dioxide 26 (22-30) mmol/L Anion Gap 12 mmol/L BUN 14 (9-20) mg/dL Creatinine 0.60 L (0.66-1.25) mg/dL Est GFR (CKD-EPI)AfAm >90 (>60 ml/min/1.73 sqM) Est GFR (CKD-EPI)NonAf >90 (>60 ml/min/1.73 sqM) Glucose 91 (74-99) mg/dL Calcium 9.3 (8.4-10.2) mg/dL Troponin I (0.000-0.034) ng/mL 06/29/22 06/29/22 Range/Units 14:36 18:01 WBC (3.8-10.6) k/uL RBC (4.30-5.90) m/uL Hgb (13.0-17.5) gm/dL Hct (39.0-53.0) % MCV (80.0-100.0) fL MCH (25.0-35.0) pg MCHC (31.0-37.0) g/dL RDW (11.5-15.5) % Plt Count (150-450) k/uL MPV Neutrophils % % Lymphocytes % % Monocytes % % Eosinophils % % Basophils % % Neutrophils # (1.3-7.7) k/uL Lymphocytes # (1.0-4.8) k/uL Monocytes # (0-1.0) k/uL Eosinophils # (0-0.7) k/uL Basophils # (0-0.2) k/uL PT (9.0-12.0) sec INR (<1.2) APTT (22.0-30.0) sec Sodium (137-145) mmol/L Potassium (3.5-5.1) mmol/L Chloride (98-107) mmol/L Carbon Dioxide (22-30) mmol/L Anion Gap mmol/L BUN (9-20) mg/dL Creatinine (0.66-1.25) mg/dL Est GFR (CKD-EPI)AfAm (>60 ml/min/1.73 sqM) Est GFR (CKD-EPI)NonAf (>60 ml/min/1.73 sqM) Glucose (74-99) mg/dL Calcium (8.4-10.2) mg/dL Troponin I 0.014 <0.012 (0.000-0.034) ng/mL Disposition Clinical Impression: Chest pain Disposition: HOME SELF-CARE Condition: Good Instructions (If sedation given, give patient instructions): Chest Pain (ED) Is patient prescribed a controlled substance at d/c from ED?: No Referrals: Koby Holguin MD [Primary Care Provider] - 1-2 days Time of Disposition: 18:44
[2022-06-29 14:48] LABS: African American GFR (CKD) >90 (>60 ml/min/1.73 sqM); Anion Gap 12 mmol/L; Blood Urea Nitrogen 14 mg/dL (9-20); Calcium 9.3 mg/dL (8.4-10.2); Carbon Dioxide 26 mmol/L (22-30); Chloride 101 mmol/L (98-107); Glucose 91 mg/dL (74-99); Non-African American GFR(CKD) >90 (>60 ml/min/1.73 sqM); Potassium 4.1 mmol/L (3.5-5.1); Sodium 139 mmol/L (137-145)
[2022-06-29 14:50] LABS: Basophils % (A) 1 %; Eosinophils # (A) 0.1 k/uL (0-0.7); Eosinophils % (A) 1 %; HCT 44.5 % (39.0-53.0); HGB 14.7 gm/dL (13.0-17.5); Lymphocytes # (A) 0.8 k/uL (1.0-4.8); Lymphocytes % (A) 13 %; MCH 31.7 pg (25.0-35.0); MCHC 33.1 g/dL (31.0-37.0); MCV 95.9 fL (80.0-100.0); Mean Platelet Volume 9.4; Monocytes # (A) 0.4 k/uL (0-1.0); Monocytes % (A) 6 %; Neutrophils # (A) 5.1 k/uL (1.3-7.7); Neutrophils % (A) 77 %; Platelet Count 130 k/uL (150-450); RBC 4.64 m/uL (4.30-5.90); RDW 12.8 % (11.5-15.5); WBC 6.6 k/uL (3.8-10.6)
[2022-06-29 14:55] LABS: INR 1.1 (<1.2); Partial Thromboplastin Time 27.8 sec (22.0-30.0); Prothrombin Time 11.6 sec (9.0-12.0)
--- NOTE | 2022-06-29 14:56 | XR ---
EXAMINATION TYPE: XR chest 2V DATE OF EXAM: 06/29/2022 COMPARISON: Chest x-ray June 19, 2019 HISTORY: Pleurisy. TECHNIQUE: Frontal and lateral views of the chest are obtained. FINDINGS: There is is chronic emphysematous and parenchymal changes bilaterally without suspicious f ocal air space opacity, pleural effusion, or pneumothorax seen. The cardiac silhouette size is stabl e and within normal limits. The osseous structures are intact. IMPRESSION: Chronic changes without acute pulmonary process. No significant change from prior.
[2022-06-29] MEDS ORDERED: ASPIRIN 81 MG PO STA (15:08)
[2022-06-29 18:55] VITALS: BP 121/78; PULSE 79
== END 2022-06-29 18:55 | disposition home or self-care (01) ==
LOC: EC 13:46
DX: R07.89 Other chest pain (principal); I48.91 Unspecified atrial fibrillation; J44.9 Chronic obstructive pulmonary disease, unspecified; I10 Essential (primary) hypertension; Z79.899 Other long term (current) drug therapy; Z87.891 Personal history of nicotine dependence
CPT/HCPCS: 36415; 71046; 80048; 84484; 85025; 85610; 85730; 93005; 99285

== ENCOUNTER 2023-09-05 11:58 | Day surgery (SDC) | payer BC, MEDICARE ==
[~2023-09-05 11:58] MED LIST changes: -LIDOCAINE 1% (10MG/ML) FOR IV START INTRADERMA ONE; -LIDOCAINE 1% INJ 10MG/ML (20 ML MDV) ONE; -PROPOFOL 10 MG/ML 20 ML VIAL IV ONE
[2023-09-05 12:39] VITALS: TEMP 98.5
[2023-09-05] MEDS ORDERED: LIDOCAINE 1% INJ 10MG/ML (20 ML MDV) ONE (12:47)
[2023-09-05] MEDS ORDERED: PROPOFOL 10 MG/ML 20 ML VIAL IV ONE (12:47)
--- NOTE | 2023-09-05 13:00 | P.GSHP ---
History of Present Illness H&P Date: 09/05/23 Chief Complaint: Screening with history of polyps 67-year-old male for colonoscopy. Last colonoscopy 3 years ago. Patient had a large the villous adenoma of the rectum. Three-year follow-up was advised. No family history of colon cancer Past Medical History Past Medical History: Atrial Fibrillation, COPD, Hyperlipidemia, Hypertension, Vascular Disorder Additional Past Medical History / Comment(s): uses O2 @HS 2.5l, does not have a portable tank History of Any Multi-Drug Resistant Organisms: None Reported Past Surgical History: Hernia Repair, Joint Replacement Additional Past Surgical History / Comment(s): right hip replacement, colonoscopies Past Anesthesia/Blood Transfusion Reactions: No Reported Reaction Smoking Status: Former smoker, Vaper - Past Family History Mother Family Medical History: No Reported History Additional Family Medical History / Comment(s): colon polps Father Family Medical History: AFIB, Hypertension Additional Family Medical History / Comment(s): AAA Medications and Allergies Home Medications Medication Instructions Recorded Confirmed Type Apixaban [Eliquis] 5 mg PO BID #60 tab 05/23/19 09/05/23 Rx Atorvastatin Calcium [Lipitor] 20 mg PO HS 06/29/22 09/05/23 History Metoprolol Tartrate [Lopressor] 50 mg PO BID 06/29/22 09/05/23 History lisinopriL [Zestril] 5 mg PO HS 06/29/22 09/05/23 History Albuterol Nebulized [Ventolin 2.5 mg INHALATION Q6H 09/01/23 09/05/23 History Nebulized] Budesonide-Formot 160-4.5 Mcg 2 puff INHALATION BID 09/01/23 09/05/23 History [Symbicort 160-4.5 Mcg Inhaler] Equate Allergy 1 tab PO DAILY 09/01/23 09/05/23 History Multivitamins, Thera [Multivitamin 1 tab PO DAILY 09/01/23 09/05/23 History (formulary)] Allergies Allergy/AdvReac Type Severity Reaction Status Date / Time No Known Allergies Allergy Verified 09/05/23 12:26 Surgical - Exam Vital Signs Temp Pulse Resp BP Pulse Ox 98.5 F 101 H 16 143/76 96 09/05/23 12:20 09/05/23 12:20 09/05/23 12:20 09/05/23 12:20 09/05/23 12:20 Physical exam: General: Well-developed, well-nourished HEENT: Normocephalic, sclerae nonicteric Abdomen: Nontender, nondistended Extremities: No edema Neuro: Alert and oriented Assessment and Plan (1) Colon cancer screening Narrative/Plan: Will proceed with colonoscopy at this time. Current Visit: Yes Status: Acute Code(s): Z12.11 - ENCOUNTER FOR SCREENING FOR MALIGNANT NEOPLASM OF COLON SNOMED Code(s): 187657354
--- NOTE | 2023-09-05 13:11 | P.PCN ---
Date of Procedure: 09/05/23 Procedure(s) Performed: PREOPERATIVE DIAGNOSIS: Screening with history of polyps POSTOPERATIVE DIAGNOSIS: Normal exam PROCEDURE: Colonoscopy ANESTHESIA: MAC SURGEON: Rajendra Moya M.D. SPECIMENS: None ENDOSCOPIC PROCEDURE: The patient was placed on the endoscopy table in the left decubitus position. The Olympus colonoscope was inserted into the anus and passed under direct visualization to the base of the cecum. The appendiceal orifice was visualized. From that point the scope was slowly withdrawn inspecting all surfaces carefully. There were no neoplastic inflammatory or polypoid lesions throughout the cecum, ascending, transverse, descending, sigmoid and rectum. There was no visible diverticulosis noted. Digital rectal examination was normal. The patient was taken to the recovery room in stable condition per anesthesia guidelines. RECOMMENDATIONS: Resume diet. Recommend repeat colonoscopy 3-5 years given the patient's history of high risk polyp on last study.
[2023-09-05 13:51] VITALS: BP 128/72; PULSE 90; RESP 16
== END 2023-09-05 13:56 | disposition home or self-care (01) ==
LOC: ORWHC2ENDO 11:58
PROVIDERS: ATTEND Surgery
DX: Z12.11 Encounter for screening for malignant neoplasm of colon (principal); E78.5 Hyperlipidemia, unspecified; I10 Essential (primary) hypertension; I48.91 Unspecified atrial fibrillation; J44.9 Chronic obstructive pulmonary disease, unspecified; Z86.010 Personal history of colon polyps; F17.290 Nicotine dependence, other tobacco product, uncomplicated; Z79.01 Long term (current) use of anticoagulants; Z79.51 Long term (current) use of inhaled steroids; Z98.890 Other specified postprocedural states; Z79.899 Other long term (current) drug therapy
CPT/HCPCS: 45378; J2001; J2704

== ENCOUNTER → 2023-11-15 | Outpatient (CLI) | payer MEDICARE ==
[2023-11-15 15:28] LABS: Blood Urea Nitrogen 15.5 mg/dL (9.0-27.0); Carbon Dioxide 32.4 mmol/L (21.6-31.8); Chloride 102 mmol/L (96-109); Potassium 4.6 mmol/L (3.5-5.5); Sodium 143 mmol/L (135-145)
[2023-11-15 15:33] LABS: HGB 15.3 g/dL (13.0-17.0); MCH 31.2 pg (27.0-32.0); MCHC 31.9 g/dL (32.0-37.0); MCV 97.8 FL (80.0-97.0); Mean Platelet Volume 11.4 FL (9.5-12.2); NRBC Per 100 WBC 0 X 10*3/uL (0.00-0.01); Platelet Count 174 X 10*3/uL (140-440); RBC 4.91 X 10*6/uL (4.40-5.60); RDW 12.2 % (11.5-14.5); WBC 4.37 X 10*3/uL (4.50-10.00)
== END | disposition home or self-care (01) ==
LOC: LABPAT 09:00
PROVIDERS: ATTEND Internal Medicine Clinical Cardiac Electrophysiology
DX: Z01.812 Encounter for preprocedural laboratory examination (principal); I48.0 Paroxysmal atrial fibrillation
CPT/HCPCS: 36415; 80051; 82565; 84520; 85027

== ENCOUNTER 2023-11-27 06:22 | Day surgery (SDC) | payer MEDICARE ==
[2023-11-27] MEDS: SODIUM CHLORIDE 0.9% 1,000 ML IV SCH (06:55)
[2023-11-27 07:21] LABS: ALT 32 U/L (4-49); AST 29 U/L (17-59); Magnesium 2.1 mg/dL (1.6-2.3)
[2023-11-27] MEDS: MIDAZOLAM 2 MG/2 ML VIAL IVP ONE (07:30)
[2023-11-27] MEDS ORDERED: MIDAZOLAM 2 MG/2 ML VIAL ONE (08:12)
[2023-11-27] MEDS ORDERED: PHENYLEPHRINE 10 MG/ML VIAL ONE (08:12)
[2023-11-27] MEDS ORDERED: ePHEDrine 50 MG/ML 1 ML VIAL ONE (08:12)
[2023-11-27] MEDS ORDERED: PROPOFOL 10 MG/ML 20 ML VIAL IV ONE (08:12)
[2023-11-27] MEDS ORDERED: HEPARIN SODIUM,PORCINE 10,000 UNIT/ML 1 ML VIAL ONE (08:12)
[2023-11-27] MEDS ORDERED: PROTAMINE SULFATE 10 MG/ML 5 ML VIAL ONE (08:12)
[2023-11-27] MEDS ORDERED: SUCCINYLCHOLINE CHLORIDE 200 MG/10 ML VIAL IV ONE (08:12)
[2023-11-27] MEDS ORDERED: LIDOCAINE 1% INJ 10MG/ML (20 ML MDV) ONE ×2 (08:12→08:30)
[2023-11-27] MEDS ORDERED: fentaNYL (PF) 50 MCG/ML 2 ML AMP ONE (08:12)
[2023-11-27] MEDS: LIDOCAINE 1% INJ 10MG/ML (20 ML MDV) SQ ONE (08:46)
[2023-11-27] MEDS: HEPARIN SOD,PORK IN 0.45% NACL 25,000 UNIT in 0.45% NACL 1 250ML.BAG IV ONE (09:00)
[2023-11-27] MEDS: SODIUM CHLORIDE 0.9% 1,000 ML IV ONE (11:01)
[2023-11-27] MEDS: IOPAMIDOL-370 100ML BTL INJ ONE (11:01)
--- NOTE | 2023-11-27 11:35 | P.EPPROC ---
- EP Procedure Note Electrophysiology Procedure Note: PROCEDURE A. fib ablation DIAGNOSIS Persistent atrial fibrillation, symptomatic, refractory to therapy, associated with cardiomyopathy RESULT No left atrial appendage mass seen on intracardiac echo, smoke in the left atrial appendage Thickened pericardium without effusion Successful A. fib ablation/pulmonary vein isolation of all veins using cryo- ablation Complete entrance block in all 4 veins confirmed Left atrial roof ablation Ablation of the left atrial septum No evidence for phrenic nerve injury Esophageal deflection YES / NO PROCEDURE DETAILS Written informed consent prior to procedure. Patient brought to the EP lab. General anesthesia given. Heparin administered. A city maintained above 300 seconds Both groins prepped and draped per protocol and venous sheaths placed. Esophagus intubated, circa catheter for temperature monitoring an endoscope for possible esophageal deflection. Phrenic nerve monitoring performed. Esophageal temperature monitoring performed. Esophageal deflection performed if circa catheter overlapping with the balloon or circa temperature less than 27.5C Intracardiac echocardiography performed. Pericardium evaluated. Left atrial appendage evaluated. Left atrium evaluated along with pulmonary veins Transseptal catheterization performed under fluoroscopic guidance and intracardiac echo guidance Cryoablation sheath exchanged, balloon catheter along with achieve catheter placed in the left atrium. Pulmonary veins isolated in the following sequence: Left superior pulmonary vein followed by left inferior pulmonary vein, followed by right inferior pulmonary vein and lastly right superior pulmonary vein. Phrenic nerve stimulation along with capture thresholds within the SVC and right superior pulmonary vein to identify the phrenic nerve proximity to the cryo- balloon. Pulmonary veins isolated and confirmed with entrance and exit block. Phrenic nerve integrity confirmed at the end of the procedure Ablation of the left atrial roof performed with sequential lesions from the left superior to the right superior pulmonary veins. Ablation of the electrograms confirmed Ablation of the left atrial septum performed with cannulation of the inferior branch of the right superior vein to achieve ablation of the posterior septum of the left atrium. Ablation of electrograms confirmed Diagnostic catheters for the high right atrium, His bundle, coronary sinus placed. LA and RA pressures recorded RA pressure: 14/8/10 LA pressure: 17/4/11 Diagnostic EP study with coronary sinus pacing and recording Baseline measurements: AH 65 ms, HV 65 ms Sinus cycle length 688 ms, QRS 93 ms and QT 388 ms Venous sheaths were removed and hemostasis assured with a closure device. Patient extubated and transferred to recovery Increase procedural time The patient had a clockwise rotated heart which mated difficult to occlude the right inferior pulmonary vein This vein had multiple tributaries and each of them was accessed and the achieve catheter placed within them Multiple attempts had to be made to find the best occlusion. After multiple attempts excellent occlusion of the right inferior pulmonary vein was achieved and a 4-minute cryo lesion was delivered with complete isolation The patient also had a right middle vein and both the right middle vein and the inferior branch of the right superior vein were cannulated for ablating the left atrial septum The left superior vein was completely isolated at the first attempt but there was recovery of signals requiring a second cryo lesion with complete isolation. However a different tributary had to be accessed for good occlusion Patient was hypotensive and initially phenylephrine was administered but the hypotension was refractory to this medication Therefore it was discontinued fluids were administered and ephedrine was used with good blood pressure control through the procedure This allowed the procedure to be completed successfully and uneventfully No acute complications PROCEDURES PERFORMED Diagnostic EP study CS pacing and recording Left and right transseptal catheterization Catheter the mapping of the tachycardia Intracardiac echocardiography Pulmonary vein isolation with transseptal and comprehensive EPS, [id number] Extended procedure duration Left atrial roof line, [id number] Linear ablation, left atrium, [id number]
--- NOTE | 2023-11-27 11:38 | P.PRLE ---
RE: Asael Natarajan Dear Dr. Chelsie Hutchinson underwent successful ablation for persistent atrial fibrillation associated with cardiomyopathy His pulmonary veins were completely isolated and in addition to this ablation of the left atrial septum, left atrial roof and a wide elder between the left superior and left inferior pulmonary veins was ablated He will continue anticoagulation lifelong and continue with his heart failure medications Thank you for entrusting me with the care of the patient Warm regards Sincerely Weston Gilbert
--- NOTE | 2023-11-27 11:41 | P.HPCAR ---
History of Present Illness This is Dr. Gilbert dictating an H/P on this patient The patient was interviewed and examined IMPRESSION / ASSESSMENT: Persistent symptomatic atrial fibrillation with RVR Underlying nonischemic cardiomyopathy Hypertension Dyslipidemia PLAN: Proceed with A-fib ablation with PVI and linear ablation of the left atrium HPI Patient continues to be symptomatic with shortness of breath He continues to have episodes of atrial fibrillation He has a known dilated cardiomyopathy with normal stress test with an ejection fraction of about 39% This is of recent onset since his 2D echo in 2020 showed preserved LV systolic function ROS: No fever chills or rigors, no cough, phlegm or expectoration, no nausea, vomiting or diarrhea, no hematuria, dysuria, no musculoskeletal complaints, no strokes or seizures, no skin lesions. EXAMINATION: 137/84 mmHg pulse rate in the 70s afebrile Breath sounds are clear with scattered rhonchi Heart sounds S1-S2 normal no murmurs or gallop no rub Mild hepatojugular reflux No lower extremity edema REVIEW OF LABS, ECG & MEDICAL DATA Atorvastatin 20 mg daily Eliquis 5 mg twice daily metoprolol 50 mg twice daily lisinopril 5 mg daily Physical Exam Vitals: Vital Signs Temp Pulse Resp BP Pulse Ox 11/27/23 11:24 97.8 F 94 16 137/84 99 11/27/23 07:38 12 99 11/27/23 07:36 14 152/97 90 L 11/27/23 07:22 76 16 150/122 96 11/27/23 07:12 98.1 F 16 154/103 Intake and Output 11/26/23 11/27/23 11/27/23 22:59 06:59 14:59 Intake Total 821 Balance 821 Intake: IV 821 Other: Weight 84.9 kg Past Medical History Past Medical History: Atrial Fibrillation, COPD, Hyperlipidemia, Hypertension, Vascular Disorder Additional Past Medical History / Comment(s): uses O2 @HS 2.5l, not during day, see Dr Gilbert H & P History of Any Multi-Drug Resistant Organisms: None Reported Past Surgical History: Hernia Repair, Joint Replacement Additional Past Surgical History / Comment(s): right hip replacement, colonoscopies Past Anesthesia/Blood Transfusion Reactions: No Reported Reaction Smoking Status: Former smoker, Vaper - Past Family History Mother Family Medical History: No Reported History Additional Family Medical History / Comment(s): colon polps Father Family Medical History: AFIB, Hypertension Additional Family Medical History / Comment(s): AAA Physical Examination Vital Signs Temp Pulse Resp BP Pulse Ox 11/27/23 11:24 97.8 F 94 16 137/84 99 11/27/23 07:38 12 99 11/27/23 07:36 14 152/97 90 L 11/27/23 07:22 76 16 150/122 96 11/27/23 07:12 98.1 F 16 154/103 Intake and Output 11/26/23 11/27/23 11/27/23 22:59 06:59 14:59 Intake Total 821 Balance 821 Intake: IV 821 Other: Weight 84.9 kg Results Cardiac Enzymes 11/27/23 Range/Units 06:52 AST 29 (17-59) U/L Comprehensive Metabolic Panel 11/27/23 Range/Units 06:52 AST 29 (17-59) U/L ALT 32 (4-49) U/L Current Medications Generic Name Dose Route Start Last Admin Trade Name Freq PRN Reason Stop Dose Admin Acetaminophen 650 mg 11/27/23 11:26 Acetaminophen Tab 325 Mg Tab PO 12/27/23 11:27 Q6HR PRN Mild Pain (Scale 1 to 3) Albuterol Sulfate 2.5 mg 11/27/23 14:00 Albuterol Nebulized 2.5 Mg/3 Ml INHALATION 12/27/23 14:01 RT-Q6H [facility] Apixaban 5 mg 11/27/23 21:00 Apixaban 5 Mg Tab PO 12/27/23 21:01 BID [facility] Protocol Atorvastatin Calcium 20 mg 11/27/23 21:00 Atorvastatin 80 Mg Tab PO 12/27/23 21:01 HS [facility] Acetaminophen 1,000 mg/ IV 100 mls @ 400 mls/hr 11/27/23 11:26 Solution IVPB 11/27/23 11:40 ONCE ONE Lisinopril 5 mg 11/27/23 21:00 Lisinopril 5 Mg Tab PO 12/27/23 21:01 HS [facility] Metoprolol Tartrate 50 mg 11/27/23 21:00 Metoprolol Tartrate 50 Mg Tab PO 12/27/23 21:01 BID [facility] Sodium Chloride 12 ml 11/27/23 11:26 Sodium Chloride 0.9% Flush 10 Ml Syringe IV 12/27/23 11:27 Q12HR PRN Line Flush Intake and Output 11/26/23 11/27/23 11/27/23 22:59 06:59 14:59 Intake Total 821 Balance 821 Intake: IV 821 Other: Weight 84.9 kg Patient Weight 11/28/23 06:59 Weight 84.9 kg
[2023-11-27] MEDS: ACETAMINOPHEN IV (For NPO) 1,000 MG in EMPTY BAG 1 BAG IVPB ONE (15:32)
[2023-11-27] MEDS: ALBUTEROL NEBULIZED 2.5 MG/3 ML INHALATION SCH (17:56)
[2023-11-27] MEDS: METOPROLOL TARTRATE 50 MG TAB PO SCH (18:18)
[2023-11-27] MEDS: ACETAMINOPHEN TAB 325 MG TAB PO PRN (20:10)
[2023-11-27] MEDS: ATORVASTATIN 20 MG TAB PO SCH (20:10)
[2023-11-27] MEDS: APIXABAN 5 MG TAB PO SCH (20:11)
[2023-11-27] MEDS: lisinopriL 5 MG TAB PO SCH (20:11)
[2023-11-28] MEDS: ALBUTEROL NEBULIZED 2.5 MG/3 ML INHALATION SCH (07:35)
[2023-11-28 08:38] VITALS: BP 138/77; PULSE 87; RESP 16; TEMP 97.7
[2023-11-28] MEDS: METOPROLOL SUCCINATE (ER) 100 MG TAB.ER.24H PO SCH (09:47)
--- NOTE | 2023-11-28 11:41 | P.DS ---
Providers Attending physician: Weston Gilbert Primary care physician: [facility] Course: Patient is doing well. Sitting up in a chair Denies any dizziness lightheadedness or palpitations On examination his blood pressures 134/80 mmHg Heart sounds are regular sinus mechanism in the 80s Respirations are normal No JVD Clear lungs without any crackles No rhonchi today Heart sounds S1-S2 normal no murmurs Groins of healed well no hematoma no swelling mild tenderness Impression Paroxysmal atrial fibrillation, symptomatic Cardiomyopathy with reduced cardiac reserve Normal TSH Suggest Uninterrupted Eliquis Switch to metoprolol succinate 100 mg p.o. daily. Stop metoprolol tartrate Later switched from lisinopril to Entresto Add spironolactone 25 mg p.o. daily Later start Jardiance or Farxiga Follow-up in the office in 7 to 10 days Plan - Discharge Summary Discharge Rx Participant: No New Discharge Prescriptions: New Metoprolol Succinate (ER) [Toprol XL] 100 mg PO DAILY #90 tab Spironolactone 25 mg PO DAILY #90 tablet Discontinued Metoprolol Tartrate [Lopressor] 50 mg PO BID No Action Apixaban [Eliquis] 5 mg PO BID #60 tab lisinopriL [Zestril] 5 mg PO HS Atorvastatin Calcium [Lipitor] 20 mg PO HS Albuterol Nebulized [Ventolin Nebulized] 2.5 mg INHALATION Q6H Multivitamins, Thera [Multivitamin (formulary)] 1 tab PO DAILY Equate Allergy 1 tab PO DAILY Discharge Medication List Apixaban [Eliquis] 5 mg PO BID #60 tab 05/23/19 [Rx] Atorvastatin Calcium [Lipitor] 20 mg PO HS 06/29/22 [History] lisinopriL [Zestril] 5 mg PO HS 06/29/22 [History] Albuterol Nebulized [Ventolin Nebulized] 2.5 mg INHALATION Q6H 09/01/23 [History] Equate Allergy 1 tab PO DAILY 09/01/23 [History] Multivitamins, Thera [Multivitamin (formulary)] 1 tab PO DAILY 09/01/23 [History] Metoprolol Succinate (ER) [Toprol XL] 100 mg PO DAILY #90 tab 11/28/23 [Rx] Spironolactone 25 mg PO DAILY #90 tablet 11/28/23 [Rx] Follow up Appointment(s)/Referral(s): Weston Gilbert MD [STAFF PHYSICIAN] - 1 Week Patient Instructions/Handouts: Moderate Sedation (DC), Cardiac Ablation (DC) Activity/Diet/Wound Care/Special Instructions: No driving today due to sedation given. Post EP study - Ablation instructions 1. Keep access sites dry for 2 days. 2. No heavy lifting or straining for 2 days. 3. Avoid bending the hips repeatedly for 2 days. 4. You may go up and down stairs slowly Call if the following is noted 1. Bleeding, increasing swelling or pain at the access sites. 2. Increasing chest discomfort, especially upon taking a deep breath. 3. Increasing shortness of breath, at rest or with exertion. 4. Undue cough / phlegm 5. Difficulty or pain while swallowing. 6. Pain or change in color in the extremities. 7. Fever, chills, rigors. 8. Increasing headache or neurologic symptoms. 9. Dizziness, fainting, palpitations Continue Eliquis uninterrupted Stop metoprolol titrate Start metoprolol succinate 100 mg p.o. daily Incentive spirometry Discharge Disposition: HOME SELF-CARE
[2023-11-28] MEDS: SPIRONOLACTONE 25 MG TAB PO STA (12:15)
== END 2023-11-28 12:57 | disposition home or self-care (01) ==
LOC: CATHEP 06:22 → 6NMEDSUR 11:10 → CATHEP 11-28 12:57
PROVIDERS: ATTEND Internal Medicine Clinical Cardiac Electrophysiology
DX: I48.0 Paroxysmal atrial fibrillation (principal); I42.0 Dilated cardiomyopathy; I10 Essential (primary) hypertension; E78.5 Hyperlipidemia, unspecified; J44.9 Chronic obstructive pulmonary disease, unspecified; Z79.01 Long term (current) use of anticoagulants; Z79.899 Other long term (current) drug therapy; Z87.891 Personal history of nicotine dependence
CPT/HCPCS: 94640 ×2; 93656; 93657; 86900; 86901; 84443; 83735; 84450; 84460; 86850; C1894 ×2; C1769 ×3; C1760; C1730 ×2; C1759; C1893; C1733; C1766; J2250; J0330; J2720; J1644 ×2; J2001; J3010; J2704; Q9967; J2371

== ENCOUNTER 2023-11-29 23:13 | Emergency (ER) | payer MEDICARE ==
--- NOTE | 2023-11-29 23:59 | ED ---
General Adult HPI - General Chief complaint: Shortness of Breath Stated complaint: SOB Time Seen by Provider: 11/29/23 23:34 Source: patient, family Mode of arrival: ambulatory Limitations: no limitations - History of Present Illness Initial comments: Dictation was produced using [employer] dictation software. please excuse any grammatical, word or spelling errors. Chief Complaint: 68-year-old male presents to the emergency department for URI type symptoms History of Present Illness: Patient is a 68-year-old male presents to the emergency department with 4 to 5 days of URI type symptoms. On Monday he had an ablation procedure for treatment of A-fib done by cardiology. Evaluated by cardiology told that he likely is suffering from a mild case of bronchitis. For the last 2 days feels like his symptoms have been slightly worsening. Denies any fevers. He does complain of sharp pain that is worse with deep inspiration and cough. Does have a nebulizer at home. Denies any fevers. No obvious sick contacts. The ROS documented in this emergency department record has been reviewed and confirmed by me. Those systems with pertinent positive or negative responses have been documented in the HPI. All other systems are other negative and/or n oncontributory. - Related Data Home Medications Medication Instructions Recorded Confirmed Atorvastatin Calcium [Lipitor] 20 mg PO HS 06/29/22 11/27/23 lisinopriL [Zestril] 5 mg PO HS 06/29/22 11/27/23 Albuterol Nebulized [Ventolin 2.5 mg INHALATION Q6H 09/01/23 11/27/23 Nebulized] Equate Allergy 1 tab PO DAILY 09/01/23 11/27/23 Multivitamins, Thera [Multivitamin 1 tab PO DAILY 09/01/23 11/23/23 (formulary)] Previous Rx's Medication Instructions Recorded Apixaban [Eliquis] 5 mg PO BID #60 tab 05/23/19 Metoprolol Succinate (ER) [Toprol 100 mg PO DAILY #90 tab 11/28/23 XL] Spironolactone 25 mg PO DAILY #90 tablet 11/28/23 HYDROcodone/APAP 5-325MG [[place] 1 tab PO Q6HR PRN 3 Days #12 tab 11/30/23 5-325] Allergies Allergy/AdvReac Type Severity Reaction Status Date / Time No Known Allergies Allergy Verified 11/29/23 23:25 Review of Systems ROS Statement: Those systems with pertinent positive or pertinent negative responses have been documented in the HPI. ROS Other: All systems not noted in ROS Statement are negative. Past Medical History Past Medical History: Atrial Fibrillation, COPD, Hyperlipidemia, Hypertension, Vascular Disorder Additional Past Medical History / Comment(s): uses O2 @HS 2.5l, does not have a portable tank History of Any Multi-Drug Resistant Organisms: None Reported Past Surgical History: Hernia Repair, Joint Replacement Additional Past Surgical History / Comment(s): right hip replacement, colonoscop ies Past Anesthesia/Blood Transfusion Reactions: No Reported Reaction Past Psychological History: No Psychological Hx Reported Smoking Status: Former smoker, Vaper Past Alcohol Use History: Rare Additional Past Alcohol Use History / Comment(s): smokes 1 PPD, has smoked for 5 0 yrs, quit 3 yrs ago but still vapes Past Drug Use History: None Reported - Past Family History Mother Family Medical History: No Reported History Additional Family Medical History / Comment(s): colon polps Father Family Medical History: AFIB, Hypertension Additional Family Medical History / Comment(s): AAA General Exam - General Exam Comments Initial Comments: PHYSICAL EXAM: General Impression: Alert and oriented x3, not in acute distress HEENT: Normocephalic atraumatic, extra-ocular movements intact, pupils equal and reactive to light bilaterally, mucous membranes moist. Cardiovascular: Heart regular rate and rhythm Chest: Able to complete full sentences, diffuse wheezing Abdomen: abdomen soft, non-tender, non-distended, no organomegaly Musculoskeletal: Pulses present and equal in all extremities, no peripheral edema Motor: no focal deficits noted Neurological: CN II-XII grossly intact, no focal motor or sensory deficits noted Skin: Intact with no visualized rashes Psych: Normal affect and mood Limitations: no limitations Course Vital Signs 11/29/23 11/30/23 11/30/23 23:25 00:31 01:00 Temperature 97.0 F L Pulse Rate 114 H 89 85 Respiratory 22 22 Rate Blood Pressure 133/77 136/96 O2 Sat by Pulse 93 L 95 Oximetry 11/30/23 01:10 Temperature Pulse Rate 89 Respiratory Rate Blood Pressure O2 Sat by Pulse Oximetry EKG Findings - EKG Comments: EKG Findings:: My EKG interpretation: Ventricular rate 109, sinus tachycardia, LA interval 116, QRS 92, QTc 3 9. No LA prolongation, no QTC prolongation, no ST or T-wave changes noted. Overall, this EKG is unremarkable Medical Decision Making - Medical Decision Making Was pt. sent in by a medical professional or institution (, TYRON, TELEVISION NEWSCAST DIRECTOR, urgent care, hospital, or fdc...) When possible be specific @ -No Did you speak to anyone other than the patient for history (EMS, parent, family, police, friend...)? What history was obtained from this source @ -No Did you review nursing and triage notes (agree or disagree)? Why? @ -I reviewed and agree with nursing and triage notes Were old charts reviewed (outside hosp., previous admission, EMS record, old EKG, old radiological studies, urgent care reports/EKG's, fdc records)? Report findings @ -No old charts were reviewed Differential Diagnosis (chest pain, altered mental status, abdominal pain women, abdominal pain men, vaginal bleeding, musculoskeletal, weakness, fever, dyspnea, syncope, headache, dizziness, GI bleed, back pain, seizure, CVA, palpatations, mental health)? @ -Differential Dyspnea: Coronary syndrome, arrhythmia, tamponade, asthma, COPD, pulmonary embolism, pneumonia, pneumothorax, pulmonary effusion, anaphylaxis, diabetic ketoacidosis, flailed chest, pulmonary contusion, diaphragmatic rupture, anemia, neuromuscular, this is not meant to be an all-inclusive list. EKG interpreted by me (3pts min.). @ -See above X-rays interpreted by me (1pt min.). @ -Chest x-ray is nonacute CT interpreted by me (1pt min.). @ -None done U/S interpreted by me (1pt. min.). @ -None done What testing was considered but not performed or refused? (CT, X-rays, U/S, la bs)? Why? @ -None What meds were considered but not given or refused? Why? @ -None Did you discuss the management of the patient with other professionals (professionals i.e. TYRON Verdin, TELEVISION NEWSCAST DIRECTOR, lab, RT, psych nurse, health social work professor, photoengraving sketch maker, teacher, senior administrative services officer, case management social worker)? Give summary @ -No Was smoking cessation discussed for >3mins.? @ -No Was critical care preformed (if so, how long)? @ -No Were there social determinants of health that impacted care today? How? (Homelessness, low income, unemployed, alcoholism, drug addiction, transportation, low edu. Level, literacy, decrease access to med. care, skilled nursing, rehab)? @ -No Was there de-escalation of care discussed even if they declined (Discuss DNR or withdrawal of care, Hospice)? DNR status @ -No What co-morbidities impacted this encounter? (DM, HTN, Smoking, COPD, CAD, Cancer, CVA, ARF, Chemo, Hep., AIDS, mental health diagnosis, sleep apnea, morbid obesity)? @ -None Was patient admitted / discharged? Hospital course, mention meds given and route, prescriptions, significant lab abnormalities, going to OR and other pertinent info. @ -68-year-old male presents to the emergency department with pleurisy cough congestion. Initial vital signs shows heart rate of 114 rest of vital signs within acceptable limits. Repeat vital signs are improved. Patient wheezing on physical examination. Given breathing treatment Decadron with improvement of his symptoms. At 2:04 PM found to be stable to condition. Patient reports improvement of his symptoms. Patient given analgesics to go home with. He will follow-up with Dr. Gilbert. Undiagnosed new problem with uncertain prognosis? @ -No Drug Therapy requiring intensive monitoring for toxicity (Heparin, Nitro, Insulin, Cardizem)? @ -No Were any procedures done? @ -No Diagnosis/symptom? Acute, or Chronic, or Acute on Chronic? Uncomplicated (without systemic symptoms) or Complicated (systemic symptoms)? @ -Bronchitis secondary to URI Side effects of treatment? @ -No Exacerbation, Progression, or Severe Exacerbation? @ -No Poses a threat to life or bodily function? How? (Chest pain, [place], ME, pneumonia, PE, COPD, DKA, ARF, appy, cholecystitis, CVA, Diverticulitis, Homicidal, Suicidal, threat to staff... and all critical care pts) @ -No - Lab Data Result diagrams: 11/30/23 00:07 11/30/23 00:07 Lab Results 11/29/23 11/30/23 11/30/23 Range/Units 23:57 00:07 00:07 WBC 9.8 (3.8-10.6) k/uL RBC 4.25 L (4.30-5.90) m/uL Hgb 13.5 (13.0-17.5) gm/dL Hct 41.2 (39.0-53.0) % MCV 97.0 (80.0-100.0) fL MCH 31.8 (25.0-35.0) pg MCHC 32.7 (31.0-37.0) g/dL RDW 12.8 (11.5-15.5) % Plt Count 95 L (150-450) k/uL MPV 9.5 Neutrophils % 80 % Lymphocytes % 8 % Monocytes % 10 % Eosinophils % 1 % Basophils % 0 % Neutrophils # 7.9 H (1.3-7.7) k/uL Lymphocytes # 0.8 L (1.0-4.8) k/uL Monocytes # 1.0 (0-1.0) k/uL Eosinophils # 0.1 (0-0.7) k/uL Basophils # 0.0 (0-0.2) k/uL Manual Slide Review Performed Sodium 137 (137-145) mmol/L Potassium 3.9 (3.5-5.1) mmol/L Chloride 103 (98-107) mmol/L Carbon Dioxide 32 H (22-30) mmol/L Anion Gap 2 mmol/L BUN 12 (9-20) mg/dL Creatinine 0.49 L (0.66-1.25) mg/dL Est GFR (CKD-EPI)AfAm >90 (>60 ml/min/1.73 sqM) Est GFR (CKD-EPI)NonAf >90 (>60 ml/min/1.73 sqM) Glucose 118 H (74-99) mg/dL Calcium 8.7 (8.4-10.2) mg/dL Total Bilirubin 0.7 (0.2-1.3) mg/dL AST 55 (17-59) U/L ALT 51 H (4-49) U/L Alkaline Phosphatase 85 (38-126) U/L Total Protein 6.1 L (6.3-8.2) g/dL Albumin 3.8 (3.5-5.0) g/dL Influenza Type A (PCR) Not Detected (Not Detectd) Influenza Type B (PCR) Not Detected (Not Detectd) RSV (PCR) Not Detected (Not Detectd) SARS-CoV-2 (PCR) Not Detected (Not Detectd) Disposition Clinical Impression: Bronchitis Disposition: HOME SELF-CARE Condition: Good Instructions (If sedation given, give patient instructions): Acute Bronchitis (ED) Prescriptions: HYDROcodone/APAP 5-325MG [[place] 5-325] 1 tab PO Q6HR PRN 3 Days #12 tab PRN Reason: Severe Pain Is patient prescribed a controlled substance at d/c from ED?: No Referrals: Koby Holguin MD [Primary Care Provider] - 1-2 days Time of Disposition: 02:05
[2023-11-30] MEDS: IPRATROPIUM-ALBUTEROL 3 ML NEB INHALATION STA (00:27)
[2023-11-30 00:40] LABS: Basophils % (A) 0 %; Eosinophils # (A) 0.1 k/uL (0-0.7); Eosinophils % (A) 1 %; HCT 41.2 % (39.0-53.0); HGB 13.5 gm/dL (13.0-17.5); Lymphocytes # (A) 0.8 k/uL (1.0-4.8); Lymphocytes % (A) 8 %; MCH 31.8 pg (25.0-35.0); MCHC 32.7 g/dL (31.0-37.0); Mean Platelet Volume 9.5; Monocytes % (A) 10 %; Neutrophils # (A) 7.9 k/uL (1.3-7.7); Neutrophils % (A) 80 %; RBC 4.25 m/uL (4.30-5.90); RDW 12.8 % (11.5-15.5); WBC 9.8 k/uL (3.8-10.6)
[2023-11-30 00:48] LABS: ALT 51 U/L (4-49); AST 55 U/L (17-59); African American GFR (CKD) >90 (>60 ml/min/1.73 sqM); Albumin 3.8 g/dL (3.5-5.0); Alkaline Phosphatase 85 U/L (38-126); Anion Gap 2 mmol/L; Blood Urea Nitrogen 12 mg/dL (9-20); Calcium 8.7 mg/dL (8.4-10.2); Carbon Dioxide 32 mmol/L (22-30); Chloride 103 mmol/L (98-107); Glucose 118 mg/dL (74-99); Non-African American GFR(CKD) >90 (>60 ml/min/1.73 sqM); Potassium 3.9 mmol/L (3.5-5.1); Sodium 137 mmol/L (137-145); Total Bilirubin 0.7 mg/dL (0.2-1.3); Total Protein 6.1 g/dL (6.3-8.2)
[2023-11-30] MEDS: DEXAMETHASONE SOD PHOSPHATE 10 MG/ML 1 ML VIAL IV STA (00:48)
[2023-11-30 01:01] LABS: Platelet Count 95 k/uL (150-450)
--- NOTE | 2023-11-30 01:45 | XR ---
EXAM: XR Chest, 2 Views CLINICAL HISTORY: ITS.REASON XR Reason: uri TECHNIQUE: Frontal and lateral views of the chest. COMPARISON: 06.29.22 FINDINGS: Lungs: No consolidation or mass. Pleural space: No effusion. Heart: No cardiomegaly. Bones/joints: No acute findings. IMPRESSION: No acute cardiopulmonary process.
[2023-11-30] MEDS: ACET/COD 300 MG/30 MG STARTER PACK 6 TAB BTL PO STA (02:13)
[2023-11-30] MEDS: MORPHINE SULFATE 4 MG/ML SYRINGE IV STA (02:14)
[2023-11-30 03:06] VITALS: BP 135/86; PULSE 91; RESP 18; TEMP 97.3
== END 2023-11-30 02:41 | disposition home or self-care (01) ==
LOC: EC 23:13
DX: J40 Bronchitis, not specified as acute or chronic (principal); I10 Essential (primary) hypertension; E78.5 Hyperlipidemia, unspecified; J44.9 Chronic obstructive pulmonary disease, unspecified; I48.91 Unspecified atrial fibrillation; F17.290 Nicotine dependence, other tobacco product, uncomplicated; Z79.899 Other long term (current) drug therapy; Z20.822 Contact with and (suspected) exposure to COVID-19
CPT/HCPCS: 36415; 71046; 80053; 85025; 87636; 93005; 94640; 96374; 96375; 99285

== ENCOUNTER → 2024-06-07 | Outpatient (CLI) | payer MEDICARE ==
[2024-06-07 16:38] LABS: HCT 47.1 % (39.6-50.0); HGB 15.5 g/dL (13.0-17.0); MCH 32.2 pg (27.0-32.0); MCHC 32.9 g/dL (32.0-37.0); MCV 97.9 FL (80.0-97.0); Mean Platelet Volume 11.1 FL (9.5-12.2); NRBC Per 100 WBC 0 X 10*3/uL (0.00-0.01); Platelet Count 170 X 10*3/uL (140-440); RBC 4.81 X 10*6/uL (4.40-5.60); RDW 12.3 % (11.5-14.5); WBC 6.07 X 10*3/uL (4.50-10.00)
[2024-06-07 17:13] LABS: Blood Urea Nitrogen 18.6 mg/dL (9.0-27.0); Carbon Dioxide 25.3 mmol/L (21.6-31.8); Chloride 104 mmol/L (96-109); Sodium 141 mmol/L (135-145)
== END | disposition home or self-care (01) ==
LOC: LABPAT 08:41
PROVIDERS: ATTEND Student in an Organized Health Care Education/Training Program
DX: Z01.812 Encounter for preprocedural laboratory examination (principal); I42.9 Cardiomyopathy, unspecified; I48.19 Other persistent atrial fibrillation
CPT/HCPCS: 36415; 80051; 82565; 84520; 85027

== ENCOUNTER → 2024-06-10 | Day surgery (SDC) | payer MEDICARE ==
[~2024-06-10] MED LIST changes: +ALPRAZolam 0.25 MG TAB PO PRN; +ALPRAZolam 0.5 MG TAB PO PRN; +HEPARIN SODIUM 1,000 UN/ML (10ML VL) ONE; +HEPARIN SODIUM,PORCINE (1 ML) 2,500 UNIT in SODIUM CHLORIDE 0.9% 250 ML IRRIGATION PRN; +HEPARIN SODIUM,PORCINE 10,000 UNIT in SODIUM CHLORIDE 0.9% 1,000 ML IRRIGATION PRN; -LACTATED RINGERS 1,000 ML IV SCH; +LIDOCAINE 1% INJ 10MG/ML (20 ML MDV) ONE; +NITROGLYCERIN SL TABS 0.4 MG TAB SUBLINGUAL PRN; +RX INFO: IV CONTRAST WAS GIVEN 1 EACH MISC MISCELLANE PRN; +SODIUM CHLORIDE 0.9% 1,000 ML IV SCH; +VERAPAMIL 2.5 MG/ML 2 ML AMP ONE; +fentaNYL (PF) 50 MCG/ML 2 ML AMP ONE
[2024-06-10] MEDS: IV FLUID CONTINUATION 1,000 ML IV ONE (06:10)
[2024-06-10] MEDS: SODIUM CHLORIDE 0.9% 1,000 ML in EMPTY BAG 1 BAG IV SCH (06:10)
[2024-06-10] MEDS: ASPIRIN 325 MG TAB PO STA (06:15)
[2024-06-10 06:28] VITALS: RESP 16; TEMP 97.6
[2024-06-10] MEDS: MIDAZOLAM 2 MG/2 ML VIAL IVP ONE (07:55)
[2024-06-10] MEDS: fentaNYL (PF) 50 MCG/ML 2 ML AMP IVP ONE (07:55)
[2024-06-10] MEDS: LIDOCAINE 1% INJ 10MG/ML (20 ML MDV) SQ ONE (07:58)
[2024-06-10] MEDS: VERAPAMIL SYRINGE (5 MG/10 ML) INTRAARTER ONE (08:00)
[2024-06-10] MEDS: HEPARIN SODIUM 1,000 UN/ML (10ML VL) IVP ONE (08:04)
[2024-06-10] MEDS: IOPAMIDOL-370 200ML BTL INJ ONE (08:11)
--- NOTE | 2024-06-10 08:19 | P.CARDCATH ---
Date of Procedure: 06/10/24 Description of Procedure: DIAGNOSTIC CORONARY ANGIOGRAPHY and LEFT HEART CATH REPORT PROCEDURES PERFORMED: Left heart catheterization Selective coronary angiography Moderate conscious sedation 14 mins [Ultrasound assisted] Right radial access INDICATION: Cardiomyopathy. Patient has prior history of atrial fibrillation along with cardiomyopathy. Patient underwent atrial fibrillation ablation with successful achieving sinus rhythm. In sinus rhythm patient's cardiomyopathy has not improved. Due to this patient was scheduled for a cardiac catheterization to look for the etiology of cardiomyopathy. He went out for CONSENT: I have explained the procedural steps of above-mentioned procedures in layman's terms to the patient. I discussed the risks (including but not limited to stroke, emergent vascular or cardiac surgery or ), benefits and alternative therapies for the above-mentioned procedure. I discussed the risks of sedation/analgesia and blood product administration (if indicated). The patient has indicated understanding and acceptance of these risks. Conscious Sedation: Patient's ECG, heart rate, blood pressure, pulse oximetry were monitored throughout the duration of procedure under my direct supervision. 1 mg Versed and 50 mcg Fentanyl were used for induction of moderate conscious sedation. Total duration of moderate concious sedation 14 minutes. PROCEDURE: After explaining the risks, benefits and alternatives of the above mentioned procedures in detail to the patient, informed consent was obtained. Patient was taken to the catheterization lab, prepped and draped in usual sterile fashion using universal precuations. Ultrasound was used to identify the radial artery. 1% lidocaine was infiltrated over the right radial artery. A 6-Syriac sheath was placed and secured in the right radial artery using modified Seldinger technique. The sheath was flushed and 5 mg verapamil was administered intra-arterially. J tipped wire was advanced under fluoroscopic guidance. Once the wire tip reached aortic root 5500 units of IV heparin was given. Over the wire JR5 diagnostic catheter was advanced. The wire in place the catheter was manipulated to cross the aortic valve and entered into LV under fluoroscopy guidance. The wire was removed and the catheter was flushed. LV pressures were obtained and pullback was performed under fluoroscopy. Catheter was manipulated to selectively engage the right coronary ostium. Right coronary angiography was performed in different angiographic projections. The JR5 diagnostic catheter was exchanged for a JL 4 diagnostic catheter over the J-wire. The wire was removed, catheter was flushed and manipulated under fluoroscopy to selectively engaged the left coronary ostium. Left coronary angioplasty was performed in different angiographic projections. Catheter was removed over the wire. Radial sheath was flushed. The right radial sheath was removed and a TR band was placed with excellent patent hemostasis was achieved. The patient tolerated the procedure well. Patient was transported back to the post catheterization holding area in stable condition. Angiographic images were reviewed in detail. HEMODYNAMICS: Aortic Pressure: 120/70 mmHg. LV pressure: 122/10 mmHg. LVEDP 13 mmHg. There was no significant gradient across the aortic valve. SELECTIVE CORONARY ARTERIOGRAPHY: LEFT MAIN: The left main is short and large caliber vessel. It bifurcates into the LAD and circumflex. Left main appears angiographically normal. LEFT ANTERIOR DESCENDING CORONARY ARTERY: LAD is a large caliber vessel which wraps around to the apex. Proximal LAD appears angiographically normal. Mid LAD appears angiographically normal. Distal LAD appears angiographically normal. LAD gives rise to a large diagonal branch which appears angiographically normal. LEFT CIRCUMFLEX CORONARY ARTERY: It is nondominant vessel. Left circumflex is a moderate caliber vessel. It appears angiographically normal. It gives rise to a large OM branch which appears angiographically normal RIGHT CORONARY ARTERY: Dominant vessel. The right coronary artery is a large caliber vessel which gives PDA and PLV branch. It appears angiographically normal. IMPRESSION: Angiographically normal coronary arteries as described above. Normal left sided filling pressures Nonischemic cardiomyopathy PLAN: Aggressive risk factor modification per most recent ACC/AHA guidelines. 125 cc fluids for 4 hours Discharge home in 4 hours Follow-up in the office in 1-2 weeks. Performing Physician Umang Rockwell MD, FACC, RPVI Thank you for allowing [facility] to participate in this patient's care. Feel free to reach out in case of any followup questions.
[2024-06-10 08:30] VITALS: PULSE 80
[2024-06-10 09:38] VITALS: BP 144/75
== END ==
LOC: CATHCVL 05:42
PROVIDERS: ATTEND Student in an Organized Health Care Education/Training Program
DX: I42.8 Other cardiomyopathies (principal); I48.19 Other persistent atrial fibrillation; I11.0 Hypertensive heart disease with heart failure; I50.9 Heart failure, unspecified; I73.9 Peripheral vascular disease, unspecified; I48.92 Unspecified atrial flutter; J44.9 Chronic obstructive pulmonary disease, unspecified; E78.5 Hyperlipidemia, unspecified; Z79.01 Long term (current) use of anticoagulants; Z79.899 Other long term (current) drug therapy; Z79.51 Long term (current) use of inhaled steroids; Z87.891 Personal history of nicotine dependence
CPT/HCPCS: 93458